=== PATIENT | female | born 1965 | race African-American/Black ===

== ENCOUNTER 2017-01-14 09:58 | Emergency (ER) | payer SELFPAY ==
[~2017-01-14] VITALS: Ht 165.1 cm; Wt 102.1 kg
[2017-01-14] MEDS ORDERED: HYDROcodone/APAP 5/325MG 1 TAB TABLET PO ONE (10:15)
--- NOTE | 2017-01-14 11:04 | RAD ---
Examination: 3 views of the right knee History: History of pain, swelling Comparison: None available Findings: The alignment of the knee joint grossly appears unremarkable. Small knee joint effusion is visualized. No obvious acute fracture is not identified. Impression: No obvious acute fracture visualized. Small knee joint effusion, nonspecific.
--- NOTE | 2017-01-14 11:10 | PHYS DOC ---
Past Medical History Past Medical History: Hypertension Past Surgical History: No Surgical History, Tonsillectomy Additional Past Surgical Histo: L KNEE Alcohol Use: Occasionally Drug Use: None Adult General Chief Complaint Chief Complaint: KNEE INJURY HPI HPI Patient is a 52 year old female presents the ED complaining of right knee injury times one week ago. Patient states she was walking and hit her knee on the end of a table. Describes pain as sharp. Rates the pain as 7 out of 10. Patient is able to ambulate without assistance. Denies head/neck injury, LOC, laceration, rash, chest pain or shortness of breath. Review of Systems Review of Systems Constitutional: Denies fever or chills [] Eyes: Denies change in visual acuity, redness, or eye pain [] HENT: Denies nasal congestion or sore throat [] Respiratory: Denies cough or shortness of breath [] Cardiovascular: No additional information not addressed in HPI [] GI: Denies abdominal pain, nausea, vomiting, bloody stools or diarrhea [] : Denies dysuria or hematuria [] Musculoskeletal: Complains of right knee pain. Denies back pain. [] Integument: Denies rash or skin lesions [] Neurologic: Denies headache, focal weakness or sensory changes [] Endocrine: Denies polyuria or polydipsia [] All other systems were reviewed and found to be within normal limits, except as documented in this note. Current Medications Current Medications Current Medications Medications (Trade) Dose Ordered Sig/Brooks Start Time Stop Time Status Last Admin Dose Admin Acetaminophen/ Hydrocodone Bitart (Lortab 5/325) 1 tab 1X ONCE 01/14/17 10:15 01/14/17 10:16 DC 01/14/17 10:24 1 TAB Lisinopril (Prinivil) 10 mg 1X ONCE 01/14/17 11:30 01/14/17 11:31 DC 01/14/17 11:52 10 MG Allergies Allergies Allergies Coded Allergies Type Severity Reaction Last Updated Verified No Known Drug Allergies 08/12/13 No Physical Exam Physical Exam Constitutional: Well developed, well nourished, no acute distress, non-toxic appearance. [] HENT: Normocephalic, atraumatic, bilateral external ears normal, oropharynx moist, no oral exudates, nose normal. [] Eyes: PERRLA, EOMI, conjunctiva normal, no discharge. [] Neck: Normal range of motion, no tenderness, supple, no stridor. [] Cardiovascular:Heart rate regular rhythm, no murmur [] Lungs & Thorax: Bilateral breath sounds clear to auscultation [] Abdomen: Bowel sounds normal, soft, no tenderness, no masses, no pulsatile masses. [] Skin: Warm, dry, no erythema, no rash. [] Back: No tenderness, no CVA tenderness. [] Extremities: MILD RIGHT ANTERIOR KNEE TENDERNESS., no cyanosis, no clubbing, ROM intact, no edema. [] Neurologic: Alert and oriented X 3, normal motor function, normal sensory function, no focal deficits noted. [] Psychologic: Affect normal, judgement normal, mood normal. [] Current Patient Data Vital Signs Vital Signs Date Time Temp Pulse Resp B/P (MAP) Pulse Ox O2 Delivery O2 Flow Rate FiO2 01/14/17 11:52 168/76 01/14/17 10:24 18 96 Room Air 01/14/17 10:00 98.0 90 98.0 Lab Values Laboratory Tests Test 01/14/17 11:09 POC Hemoglobin 13.3 g/dL (12-15) POC Hematocrit 39 % (36-40) POC Sodium 139 mmol/L (135-145) POC Potassium 3.5 mmol/L (3.5-5.0) POC Chloride 106 mmol/L (98-110) POC Total CO2 23 mmol/L (23-32) Anion Gap 14 mmol/L (6-14) POC Blood Urea Nitrogen 9 mg/dL (8-26) POC Creatinine 0.8 mg/dL (0.5-1.4) Glucose Level 199 mg/dL (70-99) H POC Ionized Calcium ([place]) 1.09 mmol/L (1.13-1.32) L Laboratory Tests 01/14/17 11:09 EKG EKG [] Radiology/Procedures Radiology/Procedures PROCEDURE: KNEE RIGHT 3V Examination: 3 views of the right knee History: History of pain, swelling Comparison: None available Findings: The alignment of the knee joint grossly appears unremarkable. Small knee joint effusion is visualized. No obvious acute fracture is not identified. Impression: No obvious acute fracture visualized. Small knee joint effusion, nonspecific.[] Course & Med Decision Making Course & Med Decision Making Pertinent Labs and Imaging studies reviewed. (See chart for details) Patient's blood pressure elevated on arrival. States she has not been taking her blood pressure medication over the last week. Patient states that she takes lisinopril 10 mg daily. Patient denies chest pain, shortness of breath, dizziness, weakness, nausea/vomiting, headache, vision changes or symptoms related to high blood pressure. Discussed consequences if patient does not take her blood pressure medication including . Discussed the importance of follow-up with her PCP this week for repeat serial blood pressure monitoring. Patient understands and agrees with plan. Patients blood pressure improved in ED without intervention. Discussed imaging findings with patient. Patient's pain improved. Vital stable, no acute distress. Patient able to ambulate without assistance. AIDAN bandage placed. NV intact post placement. Discussed follow-up and reasons to return to the ED. Dragon Disclaimer Dragon Disclaimer This electronic medical record was generated, in whole or in part, using a voice recognition dictation system. Departure Departure Impression: Primary Impression: Knee injury Additional Impressions: Hypertension Knee joint effusion Disposition: HOME, SELF-CARE Condition: IMPROVED Referrals: NO PCP (PCP) JANINA TAYLOR MD, JOHN N MD Patient Instructions: Hypertension, Knee - Cartilage (Meniscus) Injury, Knee Pain Scripts Lisinopril (LISINOPRIL) 10 Mg Tablet 1 TAB PO DAILY, #14 TAB 2 Refills Prov: MATI MURO 01/14/17 Tramadol Hcl (TRAMADOL HCL) 50 Mg Tablet 1 TAB PO PRN Q6HRS, #12 TAB Prov: MATI MURO 01/14/17 Problem Qualifiers MATI MURO Jan 14, 2017 11:10
[2017-01-14 11:14] LABS: POTASSIUM ISTAT 3.5 mmol/L (3.5-5.0)
[2017-01-14] MEDS ORDERED: TRAM50TA PO (11:20)
[2017-01-14] MEDS ORDERED: LISI10TA2 PO (11:20)
[2017-01-14] MEDS ORDERED: LISINOPRIL 10 MG TABLET PO ONE (11:30)
[2017-01-14 11:52] VITALS: BP 168/76
== END 2017-01-14 11:46 | disposition home or self-care (01) ==
LOC: ER 09:58
DX: S89.91XA Unspecified injury of right lower leg, initial encounter (principal); M25.461 Effusion, right knee; I10 Essential (primary) hypertension; W22.8XXA Striking against or struck by other objects, initial encounter; Y93.01 Activity, walking, marching and hiking; Y99.8 Other external cause status; Y92.89 Other specified places as the place of occurrence of the external cause
CPT/HCPCS: 36415; 73562; 80047; 85014; 85018; 99284

== ENCOUNTER 2017-05-26 05:30 | Emergency (ER) | payer SELFPAY ==
[2017-05-26 06:31] LABS: ADD MAN DIFF? NO
[2017-05-26 06:35] LABS: BASO # 0.1 x10^3/uL (0.0-0.2); BASO % 1 % (0-3); EOS # 0.2 x10^3/uL (0.0-0.7); EOS % 2 % (0-3); HEMATOCRIT 38.2 % (36.0-47.0); HEMOGLOBIN 12.6 g/dL (12.0-15.5); LYMPH # 1.9 x10^3/uL (1.0-4.8); LYMPH % 13 % (24-48); MEAN CORPUSCULAR HEMOGLOBIN 31 pg (25-35); MEAN CORPUSCULAR HGB CONC 33 g/dL (31-37); MEAN CORPUSCULAR VOLUME 93 fL (79-100); MONO # 0.6 x10^3/uL (0.0-1.1); MONO % 4 % (0-9); NEUT # 11.3 x10^3uL (1.8-7.7); NEUT % 80 % (31-73); PLATELET COUNT 312 x10^3/uL (140-400); RED BLOOD COUNT 4.09 x10^6/uL (3.50-5.40); RED CELL DISTRIBUTION WIDTH 15.7 % (11.5-14.5); WHITE BLOOD COUNT 14.1 x10^3/uL (4.0-11.0)
[2017-05-26] MEDS: ALBUTEROL SULFATE 2.5 MG/3 ML NEBU. NEB ×2 (06:40→08:45)
[2017-05-26 06:42] LABS: ANION GAP 12 (6-14); BLOOD UREA NITROGEN 7 mg/dL (7-20); BUN/CREATININE RATIO 8 (6-20); CALCIUM 8.9 mg/dL (8.5-10.1); CARBON DIOXIDE 28 mmol/L (21-32); CHLORIDE 101 mmol/L (98-107); CREATININE 0.9 mg/dL (0.6-1.0); GFR 79.9; GLUCOSE 171 mg/dL (70-99); POTASSIUM 3.4 mmol/L (3.5-5.1); SODIUM 141 mmol/L (136-145)
[2017-05-26 06:48] LABS: ALBUMIN 3.1 g/dL (3.4-5.0); ALBUMIN/GLOBULIN RATIO 0.8 (1.0-1.7); ALK PHOS 89 U/L (46-116); ALT (SGPT) 14 U/L (14-59); AST (SGOT) 8 U/L (15-37); TOTAL BILIRUBIN 0.4 mg/dL (0.2-1.0); TOTAL PROTEIN 6.9 g/dL (6.4-8.2)
[2017-05-26] MEDS: IPRATROPIUM BROMIDE 0.5 MG/2.5 ML NEBU. NEB (06:52)
[2017-05-26 06:56] LABS: NT-PRO BNP 209 pg/mL (0-124)
[2017-05-26 07:46] LABS: INFLUENZA A PATIENT NEGATIVE (NEGATIVE); INFLUENZA B PATIENT NEGATIVE (NEGATIVE); OBC FLU VALID
== END 2017-05-26 09:26 | disposition home or self-care (01) ==
LOC: ER 05:30
DX: J20.8 Acute bronchitis due to other specified organisms (principal); B96.89 Other specified bacterial agents as the cause of diseases classified elsewhere; I10 Essential (primary) hypertension
CPT/HCPCS: 36415; 71045; 80053; 83880; 85025; 87804; 87804-59; 94640; 99285-25; J7613; J7644

== ENCOUNTER 2018-08-30 12:40 | Inpatient (IN) | payer SELFPAY ==
[~2018-08-30] VITALS: Ht 165.1 cm; Wt 111.8 kg
[~2018-08-30 12:40] MED LIST: ALBU2.5V8 INH; LEVO500T59 PO; LISI10TA2 PO; TRAM50TA PO
[2018-08-30] MEDS ORDERED: IV NORMAL SALINE 1000ML BAG 1,000 ML IV ONE ×2 (13:30→15:15)
--- NOTE | 2018-08-30 13:35 | EKG ---
[facility] [address] [place] [address] Test Date: 2018-08-30 Test Time: 13:12:25 Pat Name: ANALIA SIDNEY Department: Room: Gender: F [employer]: [employer] : 1965 Requested By: ANALIA JEFFERSON Order Number: [id number] Reading MD: Measurements Intervals [place] Rate: 101 P: 59 IN: 144 QRS: 45 QRSD: 82 T: 34 QT: 342 QTc: 450 Interpretive Statements SINUS TACHYCARDIA LEFT ATRIAL ABNORMALITY QRS(T) CONTOUR ABNORMALITY CANNOT RULE OUT ANTEROSEPTAL MYOCARDIAL DAMAGE ABNORMAL ECG No previous ECG available for comparison
[2018-08-30 13:42] LABS: BILIRUBIN,URINE NEGATIVE (NEG); CLARITY,URINE CLEAR; COLOR,URINE YELLOW; NITRITE,URINE NEGATIVE (NEG); PH,URINE 5.5; PROTEIN,URINE NEGATIVE (NEG-TRACE); UROBILINOGEN,URINE 0.2 mg/dL (0.2 mg/dL)
--- NOTE | 2018-08-30 13:46 | PHYS DOC ---
Past Medical History Past Medical History: Diabetes-Type II, GERD, Hypertension Past Surgical History: No Surgical History, Other Additional Past Surgical Histo: L KNEE Additional Information: 0.3 PPD Alcohol Use: Rarely Additional Information: SOBER 19 DAYS Drug Use: None Adult General Chief Complaint Chief Complaint: HYPERGLYCEMIA HPI HPI 31-year-old female presents to ER via POV for complaints of elevated blood glucose for the past few weeks. Patient states she had been on metformin a couple of years ago but stopped taking it along with her hypertension medicine. Patient states both of her parents have history of diabetes. Patient states she has had intermittent nausea and decreased appetite. She states she's had increased thirst and urinary frequency. Patient states she's had generalized fatigue denies any dizziness, chest pain, or palpitations. She reports she has had a intermittent prod. cough with history of daily smoker. Patient denies fever, abdominal pain, or swelling in extremities. Review of Systems Review of Systems Constitutional: Denies fever or chills. Reports generalized fatigue and weakness Eyes: Denies change in visual acuity, redness, or eye pain [] HENT: Denies nasal congestion or sore throat [] Respiratory: Denies shortness of breath. Reports intermittent prod. cough Cardiovascular: Denies CP/palpitations GI: Denies abdominal pain, vomiting, bloody stools or diarrhea. Reports intermittent nausea and decreased appetite : Denies dysuria or hematuria. Reports urinary frequency Musculoskeletal: Denies back/neck pain or joint pain [] Integument: Denies rash, swelling or skin lesions [] Neurologic: Denies headache, focal weakness or sensory changes [] Endocrine: Reports polyuria or polydipsia [] All other systems were reviewed and found to be within normal limits, except as documented in this note. Current Medications Current Medications Current Medications Medications (Trade) Dose Ordered Sig/Brooks Start Time Stop Time Status Last Admin Dose Admin Insulin Human Regular (HumuLIN R VIAL) 10 unit 1X ONCE 08/30/18 15:15 08/30/18 15:16 DC 08/30/18 15:20 10 UNIT Sodium Chloride 1,000 ml @ 1,000 mls/hr 1X ONCE 08/30/18 15:15 08/30/18 16:14 DC 08/30/18 15:19 1,000 MLS/HR Allergies Allergies Allergies Coded Allergies Type Severity Reaction Last Updated Verified No Known Drug Allergies 08/12/13 No Physical Exam Physical Exam Constitutional: Well developed, well nourished, no acute distress, non-toxic appearance. [] HENT: Normocephalic, atraumatic, mucous membranes pink/dry, nose normal. [] Eyes: PERRLA, no nystagmus, conjunctiva normal, no discharge. [] Neck: Normal range of motion, no tenderness, supple, no stridor. [] Cardiovascular: Heart rate regular rhythm, no murmur [] Lungs & Thorax: Bilateral breath sounds clear to auscultation- resp. equal/nonlabored Abdomen: Bowel sounds normal, soft-no distention or rigidity, no tenderness, no masses, no pulsatile masses. [] Skin: Warm, dry, no erythema, no rash. [] Back: No tenderness, no CVA tenderness. [] Extremities: No tenderness, no cyanosis, no clubbing, ROM intact, no edema. [] Neurologic: Alert and oriented X 3, normal motor function, normal sensory function, no focal deficits noted. [] Psychologic: Affect normal, judgement normal, mood normal. [] Current Patient Data Vital Signs Vital Signs Date Time Temp Pulse Resp B/P (MAP) Pulse Ox O2 Delivery O2 Flow Rate FiO2 08/30/18 14:05 90 16 130/61 (84) 95 Room Air 08/30/18 13:02 99.2 99.2 Lab Values Laboratory Tests Test 08/30/18 13:05 08/30/18 13:35 08/30/18 14:15 Urine Collection Type Unknown Urine Color Yellow Urine Clarity Clear Urine pH 5.5 Urine Specific [place] >=1.030 Urine Protein Negative mg/dL (NEG-TRACE) Urine Glucose (UA) >=1000 mg/dL (NEG) Urine Ketones (Stick) Negative mg/dL (NEG) Urine Blood Negative (NEG) Urine Nitrite Negative (NEG) Urine Bilirubin Negative (NEG) Urine Urobilinogen Dipstick 0.2 mg/dL (0.2 mg/dL) Urine Leukocyte Esterase Negative (NEG) Urine RBC 1-2 /HPF (0-2) Urine WBC 1-4 /HPF (0-4) Urine Squamous Epithelial Cells Few /LPF Urine Bacteria 0 /HPF (0-FEW) Urine Trichomonas Present Urine Yeast Present /HPF Urine Opiates Screen Neg (NEG) Urine Methadone Screen Neg (NEG) Urine Barbiturates Neg (NEG) Urine Phencyclidine Screen Neg (NEG) Urine Amphetamine/Methamphetamine Neg (NEG) Urine Benzodiazepines Screen Neg (NEG) Urine Cocaine Screen Pos (NEG) Urine Cannabinoids Screen Neg (NEG) Urine Ethyl Alcohol Neg (NEG) POC Urine HCG, Qualitative Hcg negative (Negative) White Blood Count 12.1 x10^3/uL (4.0-11.0) H Red Blood Count 4.54 x10^6/uL (3.50-5.40) Hemoglobin 14.2 g/dL (12.0-15.5) Hematocrit 43.4 % (36.0-47.0) Mean Corpuscular Volume 96 fL (79-100) Mean Corpuscular Hemoglobin 31 pg (25-35) Mean Corpuscular Hemoglobin Concent 33 g/dL (31-37) Red Cell Distribution Width 14.6 % (11.5-14.5) H Platelet Count 284 x10^3/uL (140-400) Neutrophils (%) (Auto) 79 % (31-73) H Lymphocytes (%) (Auto) 15 % (24-48) L Monocytes (%) (Auto) 4 % (0-9) Eosinophils (%) (Auto) 1 % (0-3) Basophils (%) (Auto) 1 % (0-3) Neutrophils # (Auto) 9.6 x10^3/uL (1.8-7.7) H Lymphocytes # (Auto) 1.8 x10^3/uL (1.0-4.8) Monocytes # (Auto) 0.5 x10^3/uL (0.0-1.1) Eosinophils # (Auto) 0.1 x10^3/uL (0.0-0.7) Basophils # (Auto) 0.1 x10^3/uL (0.0-0.2) Sodium Level 124 mmol/L (136-145) L Potassium Level 4.2 mmol/L (3.5-5.1) Chloride Level 87 mmol/L (98-107) L Carbon Dioxide Level 23 mmol/L (21-32) Anion Gap 14 (6-14) Blood Urea Nitrogen 9 mg/dL (7-20) Creatinine 1.4 mg/dL (0.6-1.0) H Estimated GFR (Cockcroft-Gault) 47.8 BUN/Creatinine Ratio 6 (6-20) Glucose Level 850 mg/dL (70-99) *H Calcium Level 9.5 mg/dL (8.5-10.1) Magnesium Level 2.1 mg/dL (1.8-2.4) Total Bilirubin 0.3 mg/dL (0.2-1.0) Aspartate Amino Transferase (AST) 7 U/L (15-37) L Alanine Aminotransferase (ALT) 17 U/L (14-59) Alkaline Phosphatase 170 U/L (46-116) H Troponin I Quantitative < 0.017 ng/mL (0.000-0.055) Total Protein 8.2 g/dL (6.4-8.2) Albumin 3.5 g/dL (3.4-5.0) Albumin/Globulin Ratio 0.7 (1.0-1.7) L Ethyl Alcohol Level < 10 mg/dL (0-10) Acetone Level Neg (NEG) Laboratory Tests 08/30/18 14:15 Laboratory Tests 08/30/18 14:15 EKG EKG EKG obtained 08/30/18 at [address] Cid Sinus rhythm Rate 102 No STEMI Radiology/Procedures Radiology/Procedures PROCEDURE: CHEST PA & LATERAL Indication: Peak TECHNIQUE: 2 views of the chest COMPARISON: 05/26/2017 FINDINGS: Heart is normal in size. Streaky bilateral central opacities are seen. No focal consolidation. No pneumothorax or pleural effusion. Visualized bony thorax within normal limits. IMPRESSION: Findings suggests mild bronchitis. Electronically signed by: Henry Mendoza DO (08/30/2018 2:01 PM) [facility] DICTATED and SIGNED BY: HENRY MENDOZA DO DATE: 08/30/18 1401 Course & Med Decision Making Course & Med Decision Making Pertinent Labs and Imaging studies reviewed. (See chart for details) 1340: RN reported initial bedside glucose read HIGH. Dr. Escobedo, hospitalist in ER so discussed pt's case and admission plan with pt's presenting sxs and pt having no PCP to f/u with- she is agreeable with admit plan. Pt's blood glucose on lab results at 850 anion gap NL at 14 and acetone level negative. Patient had no ketones on her UA. CO2 was normal limits. Patient's chest x-ray showed mild bronchitis. Patient's UA negative for infection but was positive for Trichomonas and yeast. Patient has been given 2 L normal saline and IV regular insulin 10 units. Patient is being admitted to [facility] for further care and monitoring. Patient will be started on doxycycline for bronchitis and Flagyl for trichomonas. Patient's sodium on labs 124 corrected sodium level was 142. Test results discussed with patient. She remains nontoxic in appearance and in no distress during discussion on tests. 1615: On recheck patient's blood sugar is 433 after 1 L of fluid and 10 units regular IV. Patient has second liter normal saline infusing blood sugar will be monitored during admission. Test results were discussed with patient along with plan of care. Pt being admitted with SS insulin as she is not in DKA. She had EKG obtained while in the ER with no acute ST elevation/STEMI and troponin was neg. Dragon Disclaimer Dragon Disclaimer This electronic medical record was generated, in whole or in part, using a voice recognition dictation system. Departure Departure Impression: Primary Impression: Hyperglycemia Additional Impression: Bronchitis Disposition: ADMITTED INPATIENT Admitting Physician: KELSI Condition: STABLE Referrals: NO PCP (PCP) Scripts Insulin Glargine,Hum.rec.anlog (LANTUS SOLOSTAR) 100 Unit/1 Ml Insuln.pen 20 UNITS SQ QHS for diabetes for 30 Days, EACH Prov: CLIFF RUEDA MD 08/31/18 Doxycycline Hyclate (DOXYCYCLINE HYCLATE) 100 Mg Capsule 1 CAP PO BID for bronchitis, #14 CAP Prov: CLIFF RUEDA MD 08/31/18 Metformin Hcl (GLUCOPHAGE) 850 Mg Tablet 850 MG PO BIDWMEALS for diabetes, #60 TAB 1 Refill Prov: CLIFF RUEDA MD 08/31/18 Glyburide (GLYBURIDE) 5 Mg Tablet 5 MG PO BIDWMEALS for diabetes, #60 TAB 1 Refill Prov: CLIFF RUEDA MD 08/31/18 Problem Qualifiers ANALIA JEFFERSON APRN Aug 30, 2018 13:46
--- NOTE | 2018-08-30 14:04 | RAD ---
Indication: Peak TECHNIQUE: 2 views of the chest COMPARISON: 05/26/2017 FINDINGS: Heart is normal in size. Streaky bilateral central opacities are seen. No focal consolidation. No pneumothorax or pleural effusion. Visualized bony thorax within normal limits. IMPRESSION: Findings suggests mild bronchitis. Electronically signed by: Henry Mendoza DO (08/30/2018 2:01 PM) [facility]
[2018-08-30 14:13] LABS: BACTERIA,URINE 0 /HPF (0-FEW); SQUAMOUS EPITHELIAL CELL,UR FEW /LPF; TRICHOMONAS,URINE PRESENT; YEAST,URINE PRESENT /HPF
[2018-08-30 14:28] LABS: BASO # 0.1 x10^3/uL (0.0-0.2); BASO % 1 % (0-3); EOS # 0.1 x10^3/uL (0.0-0.7); EOS % 1 % (0-3); HEMATOCRIT 43.4 % (36.0-47.0); HEMOGLOBIN 14.2 g/dL (12.0-15.5); LYMPH # 1.8 x10^3/uL (1.0-4.8); LYMPH % 15 % (24-48); MEAN CORPUSCULAR HEMOGLOBIN 31 pg (25-35); MEAN CORPUSCULAR HGB CONC 33 g/dL (31-37); MEAN CORPUSCULAR VOLUME 96 fL (79-100); MONO # 0.5 x10^3/uL (0.0-1.1); MONO % 4 % (0-9); NEUT # 9.6 x10^3/uL (1.8-7.7); NEUT % 79 % (31-73); PLATELET COUNT 284 x10^3/uL (140-400); RED BLOOD COUNT 4.54 x10^6/uL (3.50-5.40); RED CELL DISTRIBUTION WIDTH 14.6 % (11.5-14.5); WHITE BLOOD COUNT 12.1 x10^3/uL (4.0-11.0)
[2018-08-30 14:40] LABS: CALCIUM 9.5 mg/dL (8.5-10.1); CREATININE 1.4 mg/dL (0.6-1.0); GFR 47.8; POTASSIUM 4.2 mmol/L (3.5-5.1)
[2018-08-30 14:43] LABS: ALBUMIN 3.5 g/dL (3.4-5.0); ALBUMIN/GLOBULIN RATIO 0.7 (1.0-1.7); MAGNESIUM 2.1 mg/dL (1.8-2.4); TOTAL BILIRUBIN 0.3 mg/dL (0.2-1.0); TOTAL PROTEIN 8.2 g/dL (6.4-8.2)
[2018-08-30 15:08] LABS: BARBITURATES NEG (NEG); BENZODIAZEPINES NEG (NEG); CANNABINOIDS NEG (NEG); COCAINE POS (NEG); METHADONE NEG (NEG); OPIATES NEG (NEG); PHENCYCLIDINE NEG (NEG)
[2018-08-30 15:10] LABS: AMPHETAMINE/METHAMPHETAMINE NEG (NEG)
[2018-08-30] MEDS ORDERED: INSULIN REGULAR 100 UNIT/ML 3ML VIAL. IV ONE ×3 (15:15→19:30)
[2018-08-30] MEDS ORDERED: metroNIDAZOLE 500 MG TABLET PO ONE (16:30)
[2018-08-30] MEDS ORDERED: DOXYCYCLINE HYCLATE 100 MG TABLET PO ONE (16:30)
[2018-08-30] MEDS ORDERED: INSULIN LISPRO 300 UNITS/3 ML INSULN.PEN. SQ ONE ×3 (16:45→19:00)
[2018-08-30 17:05] VITALS: BP_SYST 121; BP_SYST 129; BP_DIAS 61; BP_DIAS 94
[2018-08-30] MEDS ORDERED: DEXTROSE 50% 25 GM / 50ML DISP.SYRIN. IV PRN ×2 (17:30→18:00)
[2018-08-30] MEDS ORDERED: ONDANSETRON PF 4 MG/2 ML VIAL. IV PRN (17:30)
--- NOTE | 2018-08-30 17:38 | PDOC1 ---
History and Physical Date of Admission Date of Admission DATE: 08/30/18 TIME: 17:37 Identification/Chief Complaint Chief Complaint SEEN IN ER, presented to ER via POV for complaints of elevated blood glucose for the past few weeks. Patient states she had been on metformin a couple of years ago but stopped taking it along with her hypertension medicine. Patient states both of her parents have history of diabetes. Patient states she has had intermittent nausea and decreased appetite. states she's had increased thirst and urinary frequency GLUCOSE > 800 IN ER . Patient states she's had generalized fatigue denies any dizziness, chest pain, or palpitations. She reports she has had a intermittent prod. cough with history of daily smoker. Patient denies fever, abdominal pain, or swelling in extremities.UDS POS COCAINE Past Medical History Past Medical History Past Medical History: Diabetes-Type II, GERD, Hypertension Past Surgical History: No Surgical History, Other Additional Past Surgical Histo: L KNEE Additional Information: 0.3 PPD Alcohol Use: Rarely Additional Information: SOBER 19 DAYS Drug Use: None family hx Psych: Addictions Family History Family History: Alcohol Abuse, High Cholestrol Social History Smoke: <1 pack per day ALCOHOL: occassional Drugs: Cocaine Current Problem List Problem List Problems Medical Problems: (1) Bronchitis Status: Acute (2) Hyperglycemia Status: Acute Current Medications Current Medications Current Medications Sodium Chloride 1,000 ml @ 1,000 mls/hr 1X ONCE IV Last administered on 08/30/18at 14:01; Start 08/30/18 at 13:30; Stop 08/30/18 at 14:29; Status DC Sodium Chloride 1,000 ml @ 1,000 mls/hr 1X ONCE IV Last administered on 08/30/18at 15:19; Start 08/30/18 at 15:15; Stop 08/30/18 at 16:14; Status DC Insulin Human Regular (HumuLIN R VIAL) 10 unit 1X ONCE IV Last administered on 08/30/18at 15:20; Start 08/30/18 at 15:15; Stop 08/30/18 at 15:16; Status DC Doxycycline Hyclate (Vibra-Tab) 100 mg 1X ONCE PO Last administered on 08/30/18at 17:01; Start 08/30/18 at 16:30; Stop 08/30/18 at 16:34; Status DC Metronidazole (Flagyl) 500 mg 1X ONCE PO Last administered on 08/30/18at 17:01; Start 08/30/18 at 16:30; Stop 08/30/18 at 16:34; Status DC Insulin Human Lispro (HumaLOG) 8 units 1X ONCE SQ Last administered on 08/30/18at 17:00; Start 08/30/18 at 16:45; Stop 08/30/18 at 16:46; Status DC Ondansetron HCl (Zofran) 4 mg PRN Q8HRS PRN IV NAUSEA/VOMITING; Start 08/30/18 at 17:30; Stop 08/31/18 at 17:29; Status UNV Insulin Human Lispro (HumaLOG) 0-5 UNITS TIDWMEALS SQ ; Start 08/31/18 at 08:00; Status UNV Dextrose (Dextrose 50%-Water Syringe) 12.5 gm PRN Q15MIN PRN IV SEE COMMENTS; Start 08/30/18 at 17:30; Status UNV Active Scripts Active Levaquin (Levofloxacin) 500 Mg Tablet 1 Tab PO DAILY 7 Days Proair Hfa Inhaler (Albuterol Sulfate) 8.5 Gm Hfa.aer.ad 2 Puff INH PRN Q6HRS PRN Lisinopril 10 Mg Tablet 1 Tab PO DAILY Tramadol Hcl 50 Mg Tablet 1 Tab PO PRN Q6HRS Allergies Allergies: Coded Allergies: No Known Drug Allergies (Unverified , 08/12/13) ROS Review of System Review of Systems Review of Systems Constitutional: Denies fever or chills. Reports generalized fatigue and weakness Eyes: Denies change in visual acuity, redness, or eye pain [] HENT: Denies nasal congestion or sore throat [] Respiratory: Denies shortness of breath. Reports intermittent prod. cough Cardiovascular: Denies CP/palpitations GI: Denies abdominal pain, vomiting, bloody stools or diarrhea. Reports intermittent nausea and decreased appetite : Denies dysuria or hematuria. Reports urinary frequency Musculoskeletal: Denies back/neck pain or joint pain [] Integument: Denies rash, swelling or skin lesions [] Neurologic: Denies headache, focal weakness or sensory changes [] Endocrine: Reports polyuria or polydipsia [] 14 PT systems were reviewed and found to be within normal limits, except as documented . Physical Exam Physical Exam Physical Exam Physical Exam Constitutional: Well developed, well nourished, no acute distress, non-toxic appearance. [] HENT: Normocephalic, atraumatic, mucous membranes pink/dry, nose normal. [] Eyes: PERRLA, no nystagmus, conjunctiva normal, no discharge. [] Neck: Normal range of motion, no tenderness, supple, no stridor. [] Cardiovascular: Heart rate regular rhythm, no murmur [] Lungs & Thorax: Bilateral breath sounds clear to auscultation- resp. equal/nonlabored Abdomen: Bowel sounds normal, soft-no distention or rigidity, no tenderness, no masses, no pulsatile masses. [] Skin: Warm, dry, no erythema, no rash. [] Back: No tenderness, no CVA tenderness. [] Extremities: No tenderness, no cyanosis, no clubbing, ROM intact, no edema. [] Neurologic: Alert and oriented X 3, normal motor function, normal sensory function, no focal deficits noted. [] Psychologic: Affect normal, judgement POOR mood normal. [] General: Alert, Oriented X3, Cooperative, No acute distress HEENT: Atraumatic Heart: RRR, no thrills Breasts: Not examined Abdomen: Normal bowel sounds, Soft Rectal Exam: not examined PELVIC: Examination not indicated Extremities: No cyanosis Neuro: Normal speech, Cranial nerves 3-12 NL Psych/Mental Status: Mental status NL, Mood NL Vitals Vitals Vital Signs Date Time Temp Pulse Resp B/P (MAP) Pulse Ox O2 Delivery O2 Flow Rate FiO2 08/30/18 17:11 Room Air 08/30/18 17:05 98.1 100 18 121/94 (103) 98 98.1 Labs Labs Laboratory Tests Test 08/30/18 13:04 08/30/18 13:05 08/30/18 13:35 08/30/18 14:15 Bedside Urine HCG, Qualitative Hcg negative (Negative) Hcg negative (Negative) Urine Collection Type Unknown Urine Color Yellow Urine Clarity Clear Urine pH 5.5 Urine Specific [place] >=1.030 Urine Protein Negative mg/dL (NEG-TRACE) Urine Glucose (UA) >=1000 mg/dL (NEG) Urine Ketones (Stick) Negative mg/dL (NEG) Urine Blood Negative (NEG) Urine Nitrite Negative (NEG) Urine Bilirubin Negative (NEG) Urine Urobilinogen Dipstick 0.2 mg/dL (0.2 mg/dL) Urine Leukocyte Esterase Negative (NEG) Urine RBC 1-2 /HPF (0-2) Urine WBC 1-4 /HPF (0-4) Urine Squamous Epithelial Cells Few /LPF Urine Bacteria 0 /HPF (0-FEW) Urine Trichomonas Present Urine Yeast Present /HPF Urine Opiates Screen Neg (NEG) Urine Methadone Screen Neg (NEG) Urine Barbiturates Neg (NEG) Urine Phencyclidine Screen Neg (NEG) Urine Amphetamine/Methamphetamine Neg (NEG) Urine Benzodiazepines Screen Neg (NEG) Urine Cocaine Screen Pos (NEG) Urine Cannabinoids Screen Neg (NEG) Urine Ethyl Alcohol Neg (NEG) White Blood Count 12.1 x10^3/uL (4.0-11.0) Red Blood Count 4.54 x10^6/uL (3.50-5.40) Hemoglobin 14.2 g/dL (12.0-15.5) Hematocrit 43.4 % (36.0-47.0) Mean Corpuscular Volume 96 fL (79-100) Mean Corpuscular Hemoglobin 31 pg (25-35) Mean Corpuscular Hemoglobin Concent 33 g/dL (31-37) Red Cell Distribution Width 14.6 % (11.5-14.5) Platelet Count 284 x10^3/uL (140-400) Neutrophils (%) (Auto) 79 % (31-73) Lymphocytes (%) (Auto) 15 % (24-48) Monocytes (%) (Auto) 4 % (0-9) Eosinophils (%) (Auto) 1 % (0-3) Basophils (%) (Auto) 1 % (0-3) Neutrophils # (Auto) 9.6 x10^3/uL (1.8-7.7) Lymphocytes # (Auto) 1.8 x10^3/uL (1.0-4.8) Monocytes # (Auto) 0.5 x10^3/uL (0.0-1.1) Eosinophils # (Auto) 0.1 x10^3/uL (0.0-0.7) Basophils # (Auto) 0.1 x10^3/uL (0.0-0.2) Sodium Level 124 mmol/L (136-145) Potassium Level 4.2 mmol/L (3.5-5.1) Chloride Level 87 mmol/L (98-107) Carbon Dioxide Level 23 mmol/L (21-32) Anion Gap 14 (6-14) Blood Urea Nitrogen 9 mg/dL (7-20) Creatinine 1.4 mg/dL (0.6-1.0) Estimated GFR (Cockcroft-Gault) 47.8 BUN/Creatinine Ratio 6 (6-20) Glucose Level 850 mg/dL (70-99) Calcium Level 9.5 mg/dL (8.5-10.1) Magnesium Level 2.1 mg/dL (1.8-2.4) Total Bilirubin 0.3 mg/dL (0.2-1.0) Aspartate Amino Transf (AST/SGOT) 7 U/L (15-37) Alanine Aminotransferase (ALT/SGPT) 17 U/L (14-59) Alkaline Phosphatase 170 U/L (46-116) Troponin I Quantitative < 0.017 ng/mL (0.000-0.055) Total Protein 8.2 g/dL (6.4-8.2) Albumin 3.5 g/dL (3.4-5.0) Albumin/Globulin Ratio 0.7 (1.0-1.7) Ethyl Alcohol Level < 10 mg/dL (0-10) Acetone Level Neg (NEG) Test 08/30/18 16:10 08/30/18 16:53 Glucose (Fingerstick) 433 mg/dL (70-99) 441 mg/dL (70-99) Laboratory Tests Test 08/30/18 13:04 08/30/18 13:05 08/30/18 13:35 08/30/18 14:15 Bedside Urine HCG, Qualitative Hcg negative (Negative) Hcg negative (Negative) Urine Collection Type Unknown Urine Color Yellow Urine Clarity Clear Urine pH 5.5 Urine Specific [place] >=1.030 Urine Protein Negative mg/dL (NEG-TRACE) Urine Glucose (UA) >=1000 mg/dL (NEG) Urine Ketones (Stick) Negative mg/dL (NEG) Urine Blood Negative (NEG) Urine Nitrite Negative (NEG) Urine Bilirubin Negative (NEG) Urine Urobilinogen Dipstick 0.2 mg/dL (0.2 mg/dL) Urine Leukocyte Esterase Negative (NEG) Urine RBC 1-2 /HPF (0-2) Urine WBC 1-4 /HPF (0-4) Urine Squamous Epithelial Cells Few /LPF Urine Bacteria 0 /HPF (0-FEW) Urine Trichomonas Present Urine Yeast Present /HPF Urine Opiates Screen Neg (NEG) Urine Methadone Screen Neg (NEG) Urine Barbiturates Neg (NEG) Urine Phencyclidine Screen Neg (NEG) Urine Amphetamine/Methamphetamine Neg (NEG) Urine Benzodiazepines Screen Neg (NEG) Urine Cocaine Screen Pos (NEG) Urine Cannabinoids Screen Neg (NEG) Urine Ethyl Alcohol Neg (NEG) White Blood Count 12.1 x10^3/uL (4.0-11.0) Red Blood Count 4.54 x10^6/uL (3.50-5.40) Hemoglobin 14.2 g/dL (12.0-15.5) Hematocrit 43.4 % (36.0-47.0) Mean Corpuscular Volume 96 fL (79-100) Mean Corpuscular Hemoglobin 31 pg (25-35) Mean Corpuscular Hemoglobin Concent 33 g/dL (31-37) Red Cell Distribution Width 14.6 % (11.5-14.5) Platelet Count 284 x10^3/uL (140-400) Neutrophils (%) (Auto) 79 % (31-73) Lymphocytes (%) (Auto) 15 % (24-48) Monocytes (%) (Auto) 4 % (0-9) Eosinophils (%) (Auto) 1 % (0-3) Basophils (%) (Auto) 1 % (0-3) Neutrophils # (Auto) 9.6 x10^3/uL (1.8-7.7) Lymphocytes # (Auto) 1.8 x10^3/uL (1.0-4.8) Monocytes # (Auto) 0.5 x10^3/uL (0.0-1.1) Eosinophils # (Auto) 0.1 x10^3/uL (0.0-0.7) Basophils # (Auto) 0.1 x10^3/uL (0.0-0.2) Sodium Level 124 mmol/L (136-145) Potassium Level 4.2 mmol/L (3.5-5.1) Chloride Level 87 mmol/L (98-107) Carbon Dioxide Level 23 mmol/L (21-32) Anion Gap 14 (6-14) Blood Urea Nitrogen 9 mg/dL (7-20) Creatinine 1.4 mg/dL (0.6-1.0) Estimated GFR (Cockcroft-Gault) 47.8 BUN/Creatinine Ratio 6 (6-20) Glucose Level 850 mg/dL (70-99) Calcium Level 9.5 mg/dL (8.5-10.1) Magnesium Level 2.1 mg/dL (1.8-2.4) Total Bilirubin 0.3 mg/dL (0.2-1.0) Aspartate Amino Transf (AST/SGOT) 7 U/L (15-37) Alanine Aminotransferase (ALT/SGPT) 17 U/L (14-59) Alkaline Phosphatase 170 U/L (46-116) Troponin I Quantitative < 0.017 ng/mL (0.000-0.055) Total Protein 8.2 g/dL (6.4-8.2) Albumin 3.5 g/dL (3.4-5.0) Albumin/Globulin Ratio 0.7 (1.0-1.7) Ethyl Alcohol Level < 10 mg/dL (0-10) Acetone Level Neg (NEG) Test 08/30/18 16:10 08/30/18 16:53 Glucose (Fingerstick) 433 mg/dL (70-99) 441 mg/dL (70-99) VTE Prophylaxis Ordered VTE Prophylaxis Devices: Yes VTE Pharmacological Prophylaxi: Yes Assessment/Plan Assessment/Plan IMPRESSION UNCONTROLLED DIABETES Hyperglycemia MORBID OBESITY COCAINE ABUSE Bronchitis NONCOMPLIANCE ADMITTED/// INPATIENT SS INSULIN DVT PROPHYLAXIS AVOID COCAINE USE, COUNSELED IV FLUID SUPPORT IV ROCEPHIN 1 GM Q 24 HRS IV DUONEBS QID 68 MIN PT EXAM, CHART REVIEW, > 50% OF TIME SPENT WITH EXAM, CHART REVIEW, PT CARE COORDINATION KARELY HILL MD Aug 30, 2018 17:38
[2018-08-30] MEDS ORDERED: cloNIDine HCL 0.1 MG TABLET PO PRN (18:00)
[2018-08-30] MEDS ORDERED: cefTRIAXone IV Push 1 GM VIAL. IVP SCH (18:00)
[2018-08-30] MEDS ORDERED: IPRATRPIUM/ALBUTEROL 0.5/2.5MG 3 ML NEBU. NEB SCH (18:00)
[2018-08-30] MEDS ORDERED: ACETAMINOPHEN 325 MG TABLET. PO PRN (18:00)
[2018-08-30] MEDS ORDERED: 0.9 % SODIUM CHLORIDE 10 ML DISP.SYRIN. IV PRN (18:00)
[2018-08-30] MEDS ORDERED: MAG HYDROX/ALUMINUM HYD/SIMETH 30 ML ORAL.SUSP PO PRN (18:00)
[2018-08-30] MEDS ORDERED: DOCUSATE SODIUM 100 MG CAPSULE. PO PRN (18:00)
[2018-08-30] MEDS: IV NORMAL SALINE 1000ML BAG 1,000 ML IV SCH (18:21)
[2018-08-30 18:56] VITALS: BP 128/61
[2018-08-30] MEDS ORDERED: INSULIN GLARGINE 300 UNITS/3 ML INSULN.PEN. SQ SCH (21:00)
[2018-08-30] MEDS: ALBUTEROL SULFATE 2.5 MG/3 ML NEBU. NEB PRN (21:44)
[2018-08-30 22:17] VITALS: BP 139/65
[2018-08-30] MEDS: LORazepam 0.5 MG TABLET PO PRN (22:50)
[2018-08-31 03:09] VITALS: BP 108/64
[2018-08-31] MEDS: IV NORMAL SALINE 1000ML BAG 1,000 ML IV SCH ×2 (04:35→12:55)
[2018-08-31] MEDS: LORazepam 0.5 MG TABLET PO PRN (04:37)
[2018-08-31 04:47] LABS: BASO # 0.1 x10^3/uL (0.0-0.2); BASO % 1 % (0-3); EOS # 0.2 x10^3/uL (0.0-0.7); EOS % 2 % (0-3); HEMATOCRIT 38.1 % (36.0-47.0); HEMOGLOBIN 12.6 g/dL (12.0-15.5); LYMPH # 2.4 x10^3/uL (1.0-4.8); LYMPH % 24 % (24-48); MEAN CORPUSCULAR HEMOGLOBIN 31 pg (25-35); MEAN CORPUSCULAR HGB CONC 33 g/dL (31-37); MEAN CORPUSCULAR VOLUME 94 fL (79-100); MONO # 0.5 x10^3/uL (0.0-1.1); MONO % 4 % (0-9); NEUT # 7.2 x10^3/uL (1.8-7.7); NEUT % 70 % (31-73); PLATELET COUNT 240 x10^3/uL (140-400); RED BLOOD COUNT 4.06 x10^6/uL (3.50-5.40); RED CELL DISTRIBUTION WIDTH 14.5 % (11.5-14.5); WHITE BLOOD COUNT 10.3 x10^3/uL (4.0-11.0)
[2018-08-31 05:07] LABS: ALBUMIN 2.4 g/dL (3.4-5.0); ALBUMIN/GLOBULIN RATIO 0.6 (1.0-1.7); CALCIUM 8.1 mg/dL (8.5-10.1); GFR 70.5; POTASSIUM 3.9 mmol/L (3.5-5.1); TOTAL BILIRUBIN 0.1 mg/dL (0.2-1.0); TOTAL PROTEIN 6.1 g/dL (6.4-8.2)
[2018-08-31 07:39] VITALS: BP 122/58
[2018-08-31] MEDS: INSULIN LISPRO 300 UNITS/3 ML INSULN.PEN. SQ SCH ×2 (08:00→12:00)
[2018-08-31] MEDS ORDERED: INSULIN LISPRO 300 UNITS/3 ML INSULN.PEN. SQ ONE ×3 (08:00→13:30)
[2018-08-31] MEDS ORDERED: INSULIN LISPRO 300 UNITS/3 ML INSULN.PEN. SQ SCH ×3 (08:00→17:00)
[2018-08-31] MEDS ORDERED: NICOTINE 14MG PATCH. TD PRN (09:00)
[2018-08-31] MEDS ORDERED: ENOXAPARIN 40 MG/0.4 ML SYRINGE. SQ SCH (09:00)
[2018-08-31 10:46] VITALS: BP 132/96
[2018-08-31] MEDS: ALBUTEROL SULFATE 2.5 MG/3 ML NEBU. NEB PRN (11:08)
[2018-08-31] MEDS ORDERED: metFORMIN 850 MG TABLET PO SCH (12:30)
[2018-08-31] MEDS ORDERED: DEXTROSE 50% 25 GM / 50ML DISP.SYRIN. IV PRN (13:15)
[2018-08-31] MEDS ORDERED: metroNIDAZOLE 500 MG TABLET PO ONE (13:30)
[2018-08-31] MEDS ORDERED: DOXY100C2 PO (13:33)
[2018-08-31] MEDS ORDERED: GLYB5TAB3 PO (13:33)
[2018-08-31] MEDS ORDERED: METF850T PO (13:33)
[2018-08-31] MEDS ORDERED: INSU100I13 SQ (13:35)
--- NOTE | 2018-08-31 13:43 | PDOC3 ---
Discharge Summary Visit Information Date of Admission: Aug 30, 2018 Date of Discharge: Aug 31, 2018 Final Diagnosis Dm2, uncontrolled hyperosmolar not ketotic sttate obesity, BMI 41 cocaine abuse tobacco use disorder acute bronchitis trichomonas infection noncompliance with meds, Problems Medical Problems: (1) Bronchitis Status: Acute (2) Hyperglycemia Status: Acute Brief Hospital Course Allergies Allergies Coded Allergies Type Severity Reaction Last Updated Verified No Known Drug Allergies 08/12/13 No Vital Signs Vital Signs Date Time Temp Pulse Resp B/P (MAP) Pulse Ox O2 Delivery O2 Flow Rate FiO2 08/31/18 11:08 96 Room Air 08/31/18 10:46 97.6 73 18 132/96 (108) 97.6 Lab Results Laboratory Tests Test 08/30/18 13:04 08/30/18 13:05 08/30/18 13:35 08/30/18 14:15 Bedside Urine HCG, Qualitative Hcg negative (Negative) Hcg negative (Negative) Urine Collection Type Unknown Urine Color Yellow Urine Clarity Clear Urine pH 5.5 Urine Specific [place] >=1.030 Urine Protein Negative mg/dL (NEG-TRACE) Urine Glucose (UA) >=1000 mg/dL (NEG) Urine Ketones (Stick) Negative mg/dL (NEG) Urine Blood Negative (NEG) Urine Nitrite Negative (NEG) Urine Bilirubin Negative (NEG) Urine Urobilinogen Dipstick 0.2 mg/dL (0.2 mg/dL) Urine Leukocyte Esterase Negative (NEG) Urine RBC 1-2 /HPF (0-2) Urine WBC 1-4 /HPF (0-4) Urine Squamous Epithelial Cells Few /LPF Urine Bacteria 0 /HPF (0-FEW) Urine Trichomonas Present Urine Yeast Present /HPF Urine Opiates Screen Neg (NEG) Urine Methadone Screen Neg (NEG) Urine Barbiturates Neg (NEG) Urine Phencyclidine Screen Neg (NEG) Urine Amphetamine/Methamphetamine Neg (NEG) Urine Benzodiazepines Screen Neg (NEG) Urine Cocaine Screen Pos (NEG) Urine Cannabinoids Screen Neg (NEG) Urine Ethyl Alcohol Neg (NEG) White Blood Count 12.1 x10^3/uL (4.0-11.0) Red Blood Count 4.54 x10^6/uL (3.50-5.40) Hemoglobin 14.2 g/dL (12.0-15.5) Hematocrit 43.4 % (36.0-47.0) Mean Corpuscular Volume 96 fL (79-100) Mean Corpuscular Hemoglobin 31 pg (25-35) Mean Corpuscular Hemoglobin Concent 33 g/dL (31-37) Red Cell Distribution Width 14.6 % (11.5-14.5) Platelet Count 284 x10^3/uL (140-400) Neutrophils (%) (Auto) 79 % (31-73) Lymphocytes (%) (Auto) 15 % (24-48) Monocytes (%) (Auto) 4 % (0-9) Eosinophils (%) (Auto) 1 % (0-3) Basophils (%) (Auto) 1 % (0-3) Neutrophils # (Auto) 9.6 x10^3/uL (1.8-7.7) Lymphocytes # (Auto) 1.8 x10^3/uL (1.0-4.8) Monocytes # (Auto) 0.5 x10^3/uL (0.0-1.1) Eosinophils # (Auto) 0.1 x10^3/uL (0.0-0.7) Basophils # (Auto) 0.1 x10^3/uL (0.0-0.2) Sodium Level 124 mmol/L (136-145) Potassium Level 4.2 mmol/L (3.5-5.1) Chloride Level 87 mmol/L (98-107) Carbon Dioxide Level 23 mmol/L (21-32) Anion Gap 14 (6-14) Blood Urea Nitrogen 9 mg/dL (7-20) Creatinine 1.4 mg/dL (0.6-1.0) Estimated GFR (Cockcroft-Gault) 47.8 BUN/Creatinine Ratio 6 (6-20) Glucose Level 850 mg/dL (70-99) Calcium Level 9.5 mg/dL (8.5-10.1) Magnesium Level 2.1 mg/dL (1.8-2.4) Total Bilirubin 0.3 mg/dL (0.2-1.0) Aspartate Amino Transf (AST/SGOT) 7 U/L (15-37) Alanine Aminotransferase (ALT/SGPT) 17 U/L (14-59) Alkaline Phosphatase 170 U/L (46-116) Troponin I Quantitative < 0.017 ng/mL (0.000-0.055) Total Protein 8.2 g/dL (6.4-8.2) Albumin 3.5 g/dL (3.4-5.0) Albumin/Globulin Ratio 0.7 (1.0-1.7) Ethyl Alcohol Level < 10 mg/dL (0-10) Acetone Level Neg (NEG) Test 08/30/18 16:10 08/30/18 16:53 08/30/18 17:44 08/30/18 18:38 Glucose (Fingerstick) 433 mg/dL (70-99) 441 mg/dL (70-99) 441 mg/dL (70-99) 421 mg/dL (70-99) Test 08/30/18 20:17 08/30/18 21:08 08/31/18 04:00 08/31/18 07:44 Glucose (Fingerstick) 100 mg/dL (70-99) 118 mg/dL (70-99) 392 mg/dL (70-99) White Blood Count 10.3 x10^3/uL (4.0-11.0) Red Blood Count 4.06 x10^6/uL (3.50-5.40) Hemoglobin 12.6 g/dL (12.0-15.5) Hematocrit 38.1 % (36.0-47.0) Mean Corpuscular Volume 94 fL (79-100) Mean Corpuscular Hemoglobin 31 pg (25-35) Mean Corpuscular Hemoglobin Concent 33 g/dL (31-37) Red Cell Distribution Width 14.5 % (11.5-14.5) Platelet Count 240 x10^3/uL (140-400) Neutrophils (%) (Auto) 70 % (31-73) Lymphocytes (%) (Auto) 24 % (24-48) Monocytes (%) (Auto) 4 % (0-9) Eosinophils (%) (Auto) 2 % (0-3) Basophils (%) (Auto) 1 % (0-3) Neutrophils # (Auto) 7.2 x10^3/uL (1.8-7.7) Lymphocytes # (Auto) 2.4 x10^3/uL (1.0-4.8) Monocytes # (Auto) 0.5 x10^3/uL (0.0-1.1) Eosinophils # (Auto) 0.2 x10^3/uL (0.0-0.7) Basophils # (Auto) 0.1 x10^3/uL (0.0-0.2) Sodium Level 133 mmol/L (136-145) Potassium Level 3.9 mmol/L (3.5-5.1) Chloride Level 99 mmol/L (98-107) Carbon Dioxide Level 25 mmol/L (21-32) Anion Gap 9 (6-14) Blood Urea Nitrogen 10 mg/dL (7-20) Creatinine 1.0 mg/dL (0.6-1.0) Estimated GFR (Cockcroft-Gault) 70.5 BUN/Creatinine Ratio 10 (6-20) Glucose Level 443 mg/dL (70-99) Calcium Level 8.1 mg/dL (8.5-10.1) Total Bilirubin 0.1 mg/dL (0.2-1.0) Aspartate Amino Transf (AST/SGOT) 8 U/L (15-37) Alanine Aminotransferase (ALT/SGPT) 13 U/L (14-59) Alkaline Phosphatase 119 U/L (46-116) Total Protein 6.1 g/dL (6.4-8.2) Albumin 2.4 g/dL (3.4-5.0) Albumin/Globulin Ratio 0.6 (1.0-1.7) Test 08/31/18 10:58 08/31/18 13:13 Glucose (Fingerstick) 400 mg/dL (70-99) 319 mg/dL (70-99) Laboratory Tests Test 08/30/18 14:15 08/30/18 16:10 08/30/18 16:53 08/30/18 17:44 White Blood Count 12.1 x10^3/uL (4.0-11.0) Red Blood Count 4.54 x10^6/uL (3.50-5.40) Hemoglobin 14.2 g/dL (12.0-15.5) Hematocrit 43.4 % (36.0-47.0) Mean Corpuscular Volume 96 fL (79-100) Mean Corpuscular Hemoglobin 31 pg (25-35) Mean Corpuscular Hemoglobin Concent 33 g/dL (31-37) Red Cell Distribution Width 14.6 % (11.5-14.5) Platelet Count 284 x10^3/uL (140-400) Neutrophils (%) (Auto) 79 % (31-73) Lymphocytes (%) (Auto) 15 % (24-48) Monocytes (%) (Auto) 4 % (0-9) Eosinophils (%) (Auto) 1 % (0-3) Basophils (%) (Auto) 1 % (0-3) Neutrophils # (Auto) 9.6 x10^3/uL (1.8-7.7) Lymphocytes # (Auto) 1.8 x10^3/uL (1.0-4.8) Monocytes # (Auto) 0.5 x10^3/uL (0.0-1.1) Eosinophils # (Auto) 0.1 x10^3/uL (0.0-0.7) Basophils # (Auto) 0.1 x10^3/uL (0.0-0.2) Sodium Level 124 mmol/L (136-145) Potassium Level 4.2 mmol/L (3.5-5.1) Chloride Level 87 mmol/L (98-107) Carbon Dioxide Level 23 mmol/L (21-32) Anion Gap 14 (6-14) Blood Urea Nitrogen 9 mg/dL (7-20) Creatinine 1.4 mg/dL (0.6-1.0) Estimated GFR (Cockcroft-Gault) 47.8 BUN/Creatinine Ratio 6 (6-20) Glucose Level 850 mg/dL (70-99) Calcium Level 9.5 mg/dL (8.5-10.1) Magnesium Level 2.1 mg/dL (1.8-2.4) Total Bilirubin 0.3 mg/dL (0.2-1.0) Aspartate Amino Transf (AST/SGOT) 7 U/L (15-37) Alanine Aminotransferase (ALT/SGPT) 17 U/L (14-59) Alkaline Phosphatase 170 U/L (46-116) Troponin I Quantitative < 0.017 ng/mL (0.000-0.055) Total Protein 8.2 g/dL (6.4-8.2) Albumin 3.5 g/dL (3.4-5.0) Albumin/Globulin Ratio 0.7 (1.0-1.7) Ethyl Alcohol Level < 10 mg/dL (0-10) Acetone Level Neg (NEG) Glucose (Fingerstick) 433 mg/dL (70-99) 441 mg/dL (70-99) 441 mg/dL (70-99) Test 08/30/18 18:38 08/30/18 20:17 08/30/18 21:08 08/31/18 04:00 Glucose (Fingerstick) 421 mg/dL (70-99) 100 mg/dL (70-99) 118 mg/dL (70-99) White Blood Count 10.3 x10^3/uL (4.0-11.0) Red Blood Count 4.06 x10^6/uL (3.50-5.40) Hemoglobin 12.6 g/dL (12.0-15.5) Hematocrit 38.1 % (36.0-47.0) Mean Corpuscular Volume 94 fL (79-100) Mean Corpuscular Hemoglobin 31 pg (25-35) Mean Corpuscular Hemoglobin Concent 33 g/dL (31-37) Red Cell Distribution Width 14.5 % (11.5-14.5) Platelet Count 240 x10^3/uL (140-400) Neutrophils (%) (Auto) 70 % (31-73) Lymphocytes (%) (Auto) 24 % (24-48) Monocytes (%) (Auto) 4 % (0-9) Eosinophils (%) (Auto) 2 % (0-3) Basophils (%) (Auto) 1 % (0-3) Neutrophils # (Auto) 7.2 x10^3/uL (1.8-7.7) Lymphocytes # (Auto) 2.4 x10^3/uL (1.0-4.8) Monocytes # (Auto) 0.5 x10^3/uL (0.0-1.1) Eosinophils # (Auto) 0.2 x10^3/uL (0.0-0.7) Basophils # (Auto) 0.1 x10^3/uL (0.0-0.2) Sodium Level 133 mmol/L (136-145) Potassium Level 3.9 mmol/L (3.5-5.1) Chloride Level 99 mmol/L (98-107) Carbon Dioxide Level 25 mmol/L (21-32) Anion Gap 9 (6-14) Blood Urea Nitrogen 10 mg/dL (7-20) Creatinine 1.0 mg/dL (0.6-1.0) Estimated GFR (Cockcroft-Gault) 70.5 BUN/Creatinine Ratio 10 (6-20) Glucose Level 443 mg/dL (70-99) Calcium Level 8.1 mg/dL (8.5-10.1) Total Bilirubin 0.1 mg/dL (0.2-1.0) Aspartate Amino Transf (AST/SGOT) 8 U/L (15-37) Alanine Aminotransferase (ALT/SGPT) 13 U/L (14-59) Alkaline Phosphatase 119 U/L (46-116) Total Protein 6.1 g/dL (6.4-8.2) Albumin 2.4 g/dL (3.4-5.0) Albumin/Globulin Ratio 0.6 (1.0-1.7) Test 08/31/18 07:44 08/31/18 10:58 08/31/18 13:13 Glucose (Fingerstick) 392 mg/dL (70-99) 400 mg/dL (70-99) 319 mg/dL (70-99) Brief Hospital Course Ms. Song is a 53 old admit with wekaness, cough, noted bronchitis, blood sugar 800 range, insulin given, started PO Dm2 meds, she was upset about ADA diet, wanted soda and candy, hard to educate wanted to go out to smoke, nicotine patch placed, which she liked cocaine use denied, she thinks itmight have been placed in a THC joint without her knowledge. she had stopped DM meds because metformin hurt her stomach Discharge Information Condition at Discharge: Improved Follow Up: Weeks Disposition/Orders: D/C to Home Scheduled Doxycycline Hyclate (Doxycycline Hyclate) 100 Mg Capsule, 1 CAP PO BID for bronchitis, #14 Prescribed by: CLIFF RUEDA on 08/31/18 1333 Glyburide (Glyburide) 5 Mg Tablet, 5 MG PO BIDWMEALS for diabetes, #60 Ref 1 Prescribed by: CLIFF RUEDA on 08/31/18 1333 Insulin Glargine,Hum.rec.anlog (Lantus Solostar) 100 Unit/1 Ml Insuln.pen, 20 UNITS SQ QHS for diabetes for 30 Days Prescribed by: CLIFF RUEDA on 08/31/18 1335 Levofloxacin (Levaquin) 500 Mg Tablet, 1 TAB PO DAILY for 7 Days, #7 Prescribed by: LILIANE SMITH on 05/26/17 0849 Lisinopril (Lisinopril) 10 Mg Tablet, 1 TAB PO DAILY, #14 Ref 2 Prescribed by: MATI MURO PA-C on 01/14/17 1120 Metformin Hcl (Glucophage) 850 Mg Tablet, 850 MG PO BIDWMEALS for diabetes, #60 Ref 1 Prescribed by: CLIFF RUEDA on 08/31/18 1333 Tramadol Hcl (Tramadol Hcl) 50 Mg Tablet, 1 TAB PO PRN Q6HRS, #12 Prescribed by: MATI MURO PA-C on 01/14/17 1120 Scheduled PRN Albuterol Sulfate (Proair Hfa Inhaler) 8.5 Gm Hfa.aer.ad, 2 PUFF INH PRN Q6HRS PRN for SHORTNESS OF BREATH, #1 Ref 0 Prescribed by: LILIANE SMITH on 05/26/17 0849 Patient Instructions Patient Instructions > 30 min I tried hard to educate, I doubt effective CLIFF RUEDA MD Aug 31, 2018 13:43
[2018-08-31 15:01] VITALS: BP 124/53
--- NOTE | 2018-08-31 15:35 | NUR ---
patients iv removed and tele off. discussed discharge instructions with patient. patient given prescriptions for doxycycline, lantus, metformin, and glyburide. patient informed to follow up with pcp in 1-2 weeks. patient given written information on diabetic diet. patient has no questions at time of discharge. patient stable at time of discharge. patient escorted to personal vehicle per wheelchair by health education assistant.
[2018-08-31] MEDS ORDERED: glyBURIDE 5 MG TABLET PO SCH (17:00)
[2018-08-31] MEDS ORDERED: LACTOBACILLUS RHAMNOSUS GG 1 CAPSULE. PO SCH (21:00)
[2018-08-31] MEDS ORDERED: INSULIN GLARGINE 300 UNITS/3 ML INSULN.PEN. SQ SCH (21:00)
[2018-09-01] MEDS ORDERED: CEFDINIR 300 MG CAPSULE PO SCH (08:00)
== END 2018-08-31 15:52 | disposition home or self-care (01) | DRG 638 ==
LOC: ER 12:40 → 2 NORTH 15:20
PROVIDERS: ADMIT Family Medicine; ATTEND Family Medicine
DX: E11.00 Type 2 diabetes mellitus with hyperosmolarity without nonketotic hyperglycemic-hyperosmolar coma (NKHHC) (principal); Z68.41 Body mass index [BMI] 40.0-44.9, adult; J20.9 Acute bronchitis, unspecified; A59.9 Trichomoniasis, unspecified; E66.01 Morbid (severe) obesity due to excess calories; F14.10 Cocaine abuse, uncomplicated; F17.210 Nicotine dependence, cigarettes, uncomplicated; I10 Essential (primary) hypertension; K21.9 Gastro-esophageal reflux disease without esophagitis; Z83.3 Family history of diabetes mellitus; Z91.14 Patient's other noncompliance with medication regimen; Z91.19 Patient's noncompliance with other medical treatment and regimen; Z79.4 Long term (current) use of insulin
CPT/HCPCS: 36415; 71046; 80053; 80307; 81001; 81025; 82010; 82962; 83735; 84484; 85025; 93005; 94640; 96361; 96374; G0480; J0696; J1650; J1815; J7030; J7613; 99285-25

== ENCOUNTER 2018-12-04 16:27 | Emergency (ER) | payer SELFPAY ==
[~2018-12-04] VITALS: Ht 165.1 cm; Wt 108.0 kg
[~2018-12-04 16:27] MED LIST changes: +DOXY100C2 PO; +GLYB5TAB3 PO; +INSU100I13 SQ; +METF850T PO
[2018-12-04] MEDS ORDERED: HYDROcodone/APAP 5/325MG 1 TAB TABLET PO ONE (17:00)
--- NOTE | 2018-12-04 17:23 | PHYS DOC ---
Past Medical History Past Medical History: Diabetes-Type II, GERD, Hypertension Past Surgical History: No Surgical History, Other Additional Past Surgical Histo: L KNEE Alcohol Use: Rarely Drug Use: Cocaine, Marijuana Adult General Chief Complaint Chief Complaint: LOWER EXTREMITY EDEMA HPI HPI Patient is a 53 year old AA female who presents to the emergency Department today with complaints of right thigh pain and swelling that radiates down her entire right leg. Patient states she has been in the bathtub all data relieve the pain. She denies any recent travel via car plane, patient denies any history of blood clots. She states she is a smoker [place] pack cigarettes a day. Patient denies any shortness of breath, chest pain, palpitations, numbness, tingling, weakness, or known injury to the affected extremity. She states that the pain is currently a 7 out of 10, the pain increases when she moves her leg or bears weight. She denies any body tenderness. Review of Systems Review of Systems Constitutional: Denies fever or chills [] Eyes: Denies redness, or eye pain [] HENT: Denies nasal congestion or sore throat [] Respiratory: Denies cough or shortness of breath [] Cardiovascular: No additional information not addressed in HPI [] GI: Denies abdominal pain, nausea, vomiting, or diarrhea [] Musculoskeletal: see HPI Integument: Denies erythema, rash, or skin lesions [] Neurologic: Denies headache, focal weakness or sensory changes [] Endocrine: Denies polyuria or polydipsia [] All other systems were reviewed and found to be within normal limits, except as documented in this note. Current Medications Current Medications Current Medications Medications (Trade) Dose Ordered Sig/[facility] Start Time Stop Time Status Last Admin Dose Admin Acetaminophen/ Hydrocodone Bitart (Lortab 5/325) 1 tab 1X ONCE 12/04/18 17:00 12/04/18 17:01 DC 12/04/18 17:00 1 TAB Allergies Allergies Allergies Coded Allergies Type Severity Reaction Last Updated Verified No Known Drug Allergies 08/12/13 No Physical Exam Physical Exam Constitutional: Well developed, well nourished, no acute distress, non-toxic appearance. [] HENT: Normocephalic, atraumatic, bilateral external ears normal, oropharynx moist, no oral exudates, nose normal. [] Eyes: PERRLA, EOMI, conjunctiva normal, no discharge. [] Neck: Normal range of motion, no tenderness, supple, no stridor. [] Cardiovascular:Heart rate regular rhythm, no murmur [] Lungs & Thorax: Bilateral breath sounds clear to auscultation [] Skin: Warm, dry, no erythema, no rash. [] Back: No CVA tenderness. [] Extremities: No bony tenderness, no cyanosis, no clubbing, ROM intact, RLE 1+ edema, R thigh and calf TTP [] Neurologic: Alert and oriented X 3, normal motor function, normal sensory function, no focal deficits noted. [] Psychologic: Affect normal, judgement normal, mood normal. [] Current Patient Data Vital Signs Vital Signs Date Time Temp Pulse Resp B/P (MAP) Pulse Ox O2 Delivery O2 Flow Rate FiO2 12/04/18 17:38 80 16 174/80 (111) 95 Room Air 12/04/18 16:51 98.7 98.7 EKG EKG [] Radiology/Procedures Radiology/Procedures PROCEDURE: VENOUS LOWER EXTREMITY RIGHT INDICATION: Right leg pain and swelling COMPARISON: None. TECHNIQUE: Grayscale, color and doppler ultrasound images were obtained of the right lower extremity venous vasculature. RIGHT: No thrombus identified in the common femoral vein, femoral vein, popliteal vein or visualized calf veins. IMPRESSION: * No thrombus identified in deep venous system of right lower extremity.[] Course & Med Decision Making Course & Med Decision Making Pertinent Labs and Imaging studies reviewed. (See chart for details) dx: R leg pain Pt given a hydrocodone 5/325 in the ER for pain, reports decreased pain after medication. US negative for DVT. Apply heat as needed for comfort. Follow up with PCP next week, take BP meds as prescribed. Pt verbalized an understanding of home care, medications, follow-up, and return to ED instructions and was in agreement with the plan of care. [] Dragon Disclaimer Dragon Disclaimer This electronic medical record was generated, in whole or in part, using a voice recognition dictation system. Departure Departure Impression: Primary Impression: Pain of right leg Disposition: 01 HOME, SELF-CARE Condition: STABLE Referrals: NO PCP (PCP) Patient Instructions: Leg Cramps Additional Instructions: Apply heat to painful areas as needed for relief. Take tylenol as needed for pain. Take your blood pressure as prescribed, follow up your primary care doctor next week. Return to the ER if symptoms worsen. ALICE SANDRA APRN Dec 04, 2018 17:23
--- NOTE | 2018-12-04 17:56 | RAD ---
INDICATION: Right leg pain and swelling COMPARISON: None. TECHNIQUE: Grayscale, color and doppler ultrasound images were obtained of the right lower extremity venous vasculature. RIGHT: No thrombus identified in the common femoral vein, femoral vein, popliteal vein or visualized calf veins. IMPRESSION: * No thrombus identified in deep venous system of right lower extremity. Electronically signed by: Aidan Leiva MD (12/04/2018 5:54 PM) [id number]
[2018-12-04 18:00] VITALS: BP 177/80
== END 2018-12-04 18:42 | disposition home or self-care (01) ==
LOC: ER 16:27
DX: M79.651 Pain in right thigh (principal); E11.9 Type 2 diabetes mellitus without complications; K21.9 Gastro-esophageal reflux disease without esophagitis; I10 Essential (primary) hypertension
CPT/HCPCS: 93971; 99284

== ENCOUNTER 2019-03-28 14:23 | Inpatient (IN) | payer SELFPAY ==
[~2019-03-28] VITALS: Ht 165.1 cm; Wt 100.1 kg
--- NOTE | 2019-03-28 16:12 | PHYS DOC ---
Past Medical History Past Medical History: Diabetes-Type II, GERD, Hypertension Past Surgical History: No Surgical History, Other Additional Past Surgical Histo: L KNEE Smoking Status: Current Every Day Smoker Alcohol Use: Rarely Drug Use: Cocaine, Marijuana Adult General Chief Complaint Chief Complaint: HYPERGLYCEMIA HPI HPI Patient is a 54 year old female who presents with fatigue, hyperglycemia. Patient reports she has been checking her blood sugar at home, finding it to be 600 recently. States she had been seen in her primary care 3 days earlier, was told within the emergency room, she did not at that time. States she just feels really dry and thirsty, had been drinking a lot of water yesterday trying to help her symptoms, however they did not help. States she has not been on insulin, however she has been on Jardiance and metformin. Denies any shortness of breath, does report chronic cough. States she just feels weak. Patient reports she does try to take her diabetic medications, however is not always taking apparently. Does admit to smoking crack cocaine for the last couple days. Review of Systems Review of Systems Constitutional: Denies fever or chills reports malaise[] Eyes: Denies change in visual acuity, redness, or eye pain [] HENT: Denies nasal congestion or sore throat [] Respiratory: Reports cough, occasional shortness of breath, also reports that she is a smoker and has frequent coughing[] Cardiovascular: No additional information not addressed in HPI [] GI: Denies abdominal pain, does report some nausea, denies vomiting, does report some bloody stools recently : Denies dysuria or hematuria [] Musculoskeletal: Denies back pain or joint pain [] Integument: Denies rash or skin lesions [] Neurologic: Denies headache, focal weakness or sensory changes [] Endocrine: Reports polydipsia[] All other systems were reviewed and found to be within normal limits, except as documented in this note. Current Medications Current Medications Current Medications Medications (Trade) Dose Ordered Sig/[facility] Start Time Stop Time Status Last Admin Dose Admin Ondansetron HCl (Zofran) 4 mg 1X ONCE 03/28/19 16:15 03/28/19 16:16 DC 03/28/19 16:41 4 MG Sodium Chloride 1,000 ml @ 1,000 mls/hr 1X ONCE 03/28/19 16:15 03/28/19 17:14 DC 03/28/19 16:42 1,000 MLS/HR Allergies Allergies Allergies Coded Allergies Type Severity Reaction Last Updated Verified No Known Drug Allergies 08/12/13 No Physical Exam Physical Exam Constitutional: Well developed, well nourished, no acute distress, non-toxic appearance. [] HENT: Normocephalic, atraumatic, bilateral external ears normal, oropharynx moist, no oral exudates, nose normal. [] Eyes: PERRLA, EOMI, conjunctiva normal, no discharge. [] Neck: Normal range of motion, no tenderness, supple, no stridor. [] Cardiovascular:Heart rate regular rhythm, no murmur [] Lungs & Thorax: Bilateral breath sounds faint wheezing noted[] Abdomen: Bowel sounds normal, soft, no tenderness, no masses, no pulsatile masses. [] Skin: Warm, dry, no erythema, no rash. [] Back: No tenderness, no CVA tenderness. [] Extremities: No tenderness, no cyanosis, no clubbing, ROM intact, no edema. [] Neurologic: Alert and oriented X 3, normal motor function, normal sensory function, no focal deficits noted. [] Psychologic: Affect normal, judgement normal, mood normal. [] Current Patient Data Vital Signs Vital Signs Date Time Temp Pulse Resp B/P (MAP) Pulse Ox O2 Delivery O2 Flow Rate FiO2 03/28/19 15:48 98.3 105 20 107/71 (83) 96 Room Air 98.3 Lab Values Laboratory Tests Test 03/28/19 14:57 03/28/19 16:22 03/28/19 16:31 Glucose (Fingerstick) 545 mg/dL (70-99) *H White Blood Count 11.7 x10^3/uL (4.0-11.0) H Red Blood Count 4.71 x10^6/uL (3.50-5.40) Hemoglobin 14.5 g/dL (12.0-15.5) Hematocrit 43.8 % (36.0-47.0) Mean Corpuscular Volume 93 fL (79-100) Mean Corpuscular Hemoglobin 31 pg (25-35) Mean Corpuscular Hemoglobin Concent 33 g/dL (31-37) Red Cell Distribution Width 15.2 % (11.5-14.5) H Platelet Count 290 x10^3/uL (140-400) Neutrophils (%) (Auto) 75 % (31-73) H Lymphocytes (%) (Auto) 18 % (24-48) L Monocytes (%) (Auto) 6 % (0-9) Eosinophils (%) (Auto) 1 % (0-3) Basophils (%) (Auto) 1 % (0-3) Neutrophils # (Auto) 8.7 x10^3/uL (1.8-7.7) H Lymphocytes # (Auto) 2.1 x10^3/uL (1.0-4.8) Monocytes # (Auto) 0.7 x10^3/uL (0.0-1.1) Eosinophils # (Auto) 0.1 x10^3/uL (0.0-0.7) Basophils # (Auto) 0.1 x10^3/uL (0.0-0.2) Prothrombin Time 11.2 SEC (11.7-14.0) L Prothrombin Time INR 0.8 (0.8-1.1) Sodium Level 128 mmol/L (136-145) L Potassium Level 4.3 mmol/L (3.5-5.1) Chloride Level 92 mmol/L (98-107) L Carbon Dioxide Level 20 mmol/L (21-32) L Anion Gap 16 (6-14) H Blood Urea Nitrogen 16 mg/dL (7-20) Creatinine 1.8 mg/dL (0.6-1.0) H Estimated GFR (Cockcroft-Gault) 35.6 BUN/Creatinine Ratio 9 (6-20) Glucose Level 605 mg/dL (70-99) *H Calcium Level 9.0 mg/dL (8.5-10.1) Phosphorus Level 5.9 mg/dL (2.6-4.7) H Magnesium Level 1.9 mg/dL (1.8-2.4) Total Bilirubin 0.3 mg/dL (0.2-1.0) Aspartate Amino Transferase (AST) 12 U/L (15-37) L Alanine Aminotransferase (ALT) 19 U/L (14-59) Alkaline Phosphatase 110 U/L (46-116) Troponin I Quantitative < 0.017 ng/mL (0.000-0.055) Total Protein 7.1 g/dL (6.4-8.2) Albumin 3.5 g/dL (3.4-5.0) Albumin/Globulin Ratio 1.0 (1.0-1.7) Acetone Level Neg (NEG) Urine Collection Type Unknown Urine Color Yellow Urine Clarity Clear Urine pH 5.5 Urine Specific [place] >=1.030 Urine Protein Negative mg/dL (NEG-TRACE) Urine Glucose (UA) >=1000 mg/dL (NEG) Urine Ketones (Stick) Negative mg/dL (NEG) Urine Blood Negative (NEG) Urine Nitrite Negative (NEG) Urine Bilirubin Negative (NEG) Urine Urobilinogen Dipstick 0.2 mg/dL (0.2 mg/dL) Urine Leukocyte Esterase Negative (NEG) Urine RBC Occ /HPF (0-2) Urine WBC Occ /HPF (0-4) Urine Squamous Epithelial Cells Mod /LPF Urine Bacteria Few /HPF (0-FEW) Urine Yeast Present /HPF Stool Occult Blood Positive (NEG) Urine Opiates Screen Neg (NEG) Urine Methadone Screen Neg (NEG) Urine Barbiturates Neg (NEG) Urine Phencyclidine Screen Neg (NEG) Urine Amphetamine/Methamphetamine Neg (NEG) Urine Benzodiazepines Screen Neg (NEG) Urine Cocaine Screen Pos (NEG) Urine Cannabinoids Screen Neg (NEG) Urine Ethyl Alcohol Neg (NEG) Laboratory Tests 03/28/19 16:22 Laboratory Tests 03/28/19 16:22 EKG EKG [] Radiology/Procedures Radiology/Procedures [] Course & Med Decision Making Course & Med Decision Making Pertinent Labs and Imaging studies reviewed. (See chart for details) [Discussed with Dr Escobedo, agrees to admission Will start DKA protocol] Joseph Disclaimer Joseph Disclaimer This electronic medical record was generated, in whole or in part, using a voice recognition dictation system. Departure Departure Impression: Primary Impression: Nonketotic hyperglycinemia Disposition: ADMITTED INPATIENT Admitting Physician: KELSI Referrals: NO PCP (PCP) MATI KELLY APRN Mar 28, 2019 16:12
[2019-03-28] MEDS ORDERED: ONDANSETRON PF 4 MG/2 ML VIAL. IVP ONE (16:15)
[2019-03-28] MEDS ORDERED: IV NORMAL SALINE 1000ML BAG 1,000 ML IV ONE (16:15)
[2019-03-28 16:30] LABS: BASO # 0.1 x10^3/uL (0.0-0.2); BASO % 1 % (0-3); EOS # 0.1 x10^3/uL (0.0-0.7); EOS % 1 % (0-3); HEMATOCRIT 43.8 % (36.0-47.0); HEMOGLOBIN 14.5 g/dL (12.0-15.5); LYMPH # 2.1 x10^3/uL (1.0-4.8); LYMPH % 18 % (24-48); MEAN CORPUSCULAR HEMOGLOBIN 31 pg (25-35); MEAN CORPUSCULAR HGB CONC 33 g/dL (31-37); MEAN CORPUSCULAR VOLUME 93 fL (79-100); MONO # 0.7 x10^3/uL (0.0-1.1); MONO % 6 % (0-9); NEUT # 8.7 x10^3/uL (1.8-7.7); NEUT % 75 % (31-73); PLATELET COUNT 290 x10^3/uL (140-400); RED BLOOD COUNT 4.71 x10^6/uL (3.50-5.40); RED CELL DISTRIBUTION WIDTH 15.2 % (11.5-14.5); WHITE BLOOD COUNT 11.7 x10^3/uL (4.0-11.0)
[2019-03-28 16:43] LABS: BILIRUBIN,URINE NEGATIVE (NEG); CLARITY,URINE CLEAR; COLOR,URINE YELLOW; NITRITE,URINE NEGATIVE (NEG); PH,URINE 5.5; PROTEIN,URINE NEGATIVE (NEG-TRACE); UROBILINOGEN,URINE 0.2 mg/dL (0.2 mg/dL)
[2019-03-28 16:44] LABS: PROTHROMBIN TIME PATIENT 11.2 SEC (11.7-14.0)
[2019-03-28 16:46] LABS: BACTERIA,URINE FEW /HPF (0-FEW); RBC,URINE OCC /HPF (0-2); SQUAMOUS EPITHELIAL CELL,UR MOD /LPF; WBC,URINE OCC /HPF (0-4)
[2019-03-28 16:47] LABS: YEAST,URINE PRESENT /HPF
[2019-03-28 16:49] LABS: ALBUMIN 3.5 g/dL (3.4-5.0); CREATININE 1.8 mg/dL (0.6-1.0); GFR 35.6; MAGNESIUM 1.9 mg/dL (1.8-2.4); PHOSPHORUS 5.9 mg/dL (2.6-4.7); POTASSIUM 4.3 mmol/L (3.5-5.1); TOTAL BILIRUBIN 0.3 mg/dL (0.2-1.0); TOTAL PROTEIN 7.1 g/dL (6.4-8.2)
[2019-03-28 16:49] LABS: BARBITURATES NEG (NEG); BENZODIAZEPINES NEG (NEG); CANNABINOIDS NEG (NEG); COCAINE POS (NEG); METHADONE NEG (NEG); OPIATES NEG (NEG); PHENCYCLIDINE NEG (NEG)
[2019-03-28 16:56] LABS: AMPHETAMINE/METHAMPHETAMINE NEG (NEG)
[2019-03-28 17:07] LABS: FECAL OB PT POSITIVE (NEG)
--- NOTE | 2019-03-28 17:32 | RAD ---
Exam: Chest one view INDICATION: Short of air TECHNIQUE: Frontal view of chest Comparisons: 08/30/2018 FINDINGS: The cardiomediastinal silhouette and pulmonary vessels are within normal limits. The lung and pleural spaces are clear. IMPRESSION: No acute cardiopulmonary process. Electronically signed by: Asher Allen MD (03/28/2019 5:29 PM) [id number]
[2019-03-28] MEDS ORDERED: IV NORMAL SALINE 1000ML BAG 1,000 ML IV SCH (18:10)
[2019-03-28] MEDS ORDERED: POTASSIUM CHLORIDE 10MEQ 100 ML IV PRN ×3 (18:15)
[2019-03-28] MEDS ORDERED: INSULIN REGULAR VIAL 100 UNIT in IV NORMAL SALINE 100ML 100 ML IV PRN ×2 (18:15→19:45)
[2019-03-28] MEDS ORDERED: INSULIN,REGULAR 100 UNIT DRIP 100 ML IV ONE ×2 (18:15→19:30)
[2019-03-28] MEDS ORDERED: INSULIN REGULAR VIAL 100 UNIT in IV NORMAL SALINE 100ML IV PRN (19:30)
--- NOTE | 2019-03-28 19:56 | PDOC1 ---
History and Physical Date of Admission Date of Admission DATE: 03/28/19 TIME: 19:55 Identification/Chief Complaint Chief Complaint SEEN IN , 54 year old female who presents with fatigue, hyperglycemia. Patient reports she has been checking her blood sugar at home, finding it to be 600 recently. States she had been seen in her primary care 3 days earlier, was told within the emergency room, she did not at that time. States she just feels really dry and thirsty, had been drinking a lot of water yesterday trying to help her symptoms, however they did not help. States she has not been on insulin, however she has been on Jardiance and metformin. Denies any shortness of breath, does report chronic cough. States she just feels weak. Patient reports she does try to take her diabetic medications, however is not always taking Does admit to smoking crack cocaine for the last couple days. ADMITS TO EATING LOTS OF GRAPEFRUIT Past Medical History Past Medical History Past Medical History Past Medical History: Diabetes-Type II, GERD, Hypertension Past Surgical History: No Surgical History, Other Additional Past Surgical Histo: L KNEE Smoking Status: Current Every Day Smoker Alcohol Use: Rarely Drug Use: Cocaine, Marijuana fhx HTN Cardiovascular: HTN, Hyperlipidemia Psych: Addictions Endocrine: Diabetes Family History Family History: Alcohol Abuse, High Cholestrol Social History Smoke: <1 pack per day ALCOHOL: none Drugs: Cocaine, Marijuana Current Problem List Problem List Problems Medical Problems: (1) Nonketotic hyperglycinemia Status: Acute Current Medications Current Medications Current Medications Sodium Chloride 1,000 ml @ 1,000 mls/hr 1X ONCE IV Last administered on 03/28/19at 16:42; Start 03/28/19 at 16:15; Stop 03/28/19 at 17:14; Status DC Ondansetron HCl (Zofran) 4 mg 1X ONCE IVP Last administered on 03/28/19at 16:41; Start 03/28/19 at 16:15; Stop 03/28/19 at 16:16; Status DC Sodium Chloride 1,000 ml @ 1,000 mls/hr Q1H IV Last administered on 03/28/19at 18:40; Start 03/28/19 at 18:10; Stop 03/28/19 at 19:09; Status DC Insulin Human Regular 100 unit/ Sodium Chloride 101 ml @ 9.797 mls/ hr CONT PRN PRN IV PER PROTOCOL; Start 03/28/19 at 18:15; Stop 03/28/19 at 19:48; Status DC Potassium Chloride/Water 100 ml @ 100 mls/hr PRN Q1HR PRN IV SEE COMMENTS; Start 03/28/19 at 18:15 Potassium Chloride/Water 100 ml @ 100 mls/hr PRN Q1HR PRN IV SEE COMMENTS; Start 03/28/19 at 18:15 Potassium Chloride/Water 100 ml @ 100 mls/hr PRN Q1HR PRN IV SEE COMMENTS; Start 03/28/19 at 18:15 Insulin Human Regular 100 ml @ 0 mls/hr 1X ONCE IV ; Start 03/28/19 at 18:15; Stop 03/28/19 at 19:48; Status DC Insulin Human Regular 100 ml @ 0 mls/hr 1X ONCE IV ; Start 03/28/19 at 19:30; Stop 03/28/19 at 19:31; Status Cancel Insulin Human Regular 100 unit/ Sodium Chloride 101 ml @ 9.797 mls/ hr CONT PRN IV SEE I/O RECORD; Start 03/28/19 at 19:30; Status Cancel Insulin Human Regular 100 unit/ Sodium Chloride 101 ml @ 0 mls/hr CONT PRN PRN IV PER PROTOCOL; Start 03/28/19 at 19:45; Status UNV Active Scripts Active Lantus Solostar (Insulin Glargine,Hum.rec.anlog) 100 Unit/1 Ml Insuln.pen 20 Units SQ QHS 30 Days Doxycycline Hyclate 100 Mg Capsule 1 Cap PO BID Glucophage (Metformin Hcl) 850 Mg Tablet 850 Mg PO BIDWMEALS Glyburide 5 Mg Tablet 5 Mg PO BIDWMEALS Proair Hfa Inhaler (Albuterol Sulfate) 8.5 Gm Hfa.aer.ad 2 Puff INH PRN Q6HRS PRN Allergies Allergies: Coded Allergies: No Known Drug Allergies (Unverified , 08/12/13) Physical Exam Physical Exam Review of Systems Review of Systems Constitutional: Denies fever or chills. Reports generalized fatigue and weakness Eyes: Denies change in visual acuity, redness, or eye pain [] HENT: Denies nasal congestion or sore throat [] Respiratory: Denies shortness of breath. Reports intermittent prod. cough Cardiovascular: Denies CP/palpitations GI: Denies abdominal pain, vomiting, bloody stools or diarrhea. Reports intermittent nausea and decreased appetite : Denies dysuria or hematuria. Reports urinary frequency Musculoskeletal: Denies back/neck pain or joint pain [] Integument: Denies rash, swelling or skin lesions [] Neurologic: Denies headache, focal weakness or sensory changes [] Endocrine: Reports polyuria // polydipsia [] 14 PT systems were reviewed and found to be within normal limits, except as documented . Physical Exam Physical Exam Physical Exam Physical Exam Constitutional: Well developed, well nourished, no acute distress, non-toxic appearance. [] HENT: Normocephalic, atraumatic, mucous membranes pink/dry, nose normal. [] Eyes: PERRLA, no nystagmus, conjunctiva normal, no discharge. [] Neck: Normal range of motion, no tenderness, supple, no stridor. [] Cardiovascular: Heart rate regular rhythm, no murmur [] Lungs & Thorax: Bilateral breath sounds clear to auscultation- resp. equal/nonlabored Abdomen: Bowel sounds normal, soft-no distention or rigidity, no tenderness, no masses, no pulsatile masses. [] Skin: Warm, dry, no erythema, no rash. [] Back: No tenderness, no CVA tenderness. [] Extremities: No tenderness, no cyanosis, no clubbing, ROM intact, no edema. [] Neurologic: Alert and oriented X 3, normal motor function, normal sensory function, no focal deficits noted. [] Psychologic: Affect normal, judgement POOR mood normal. [] General: Alert, Oriented X3, Cooperative, No acute distress HEENT: Atraumatic Heart: RRR, no thrills Breasts: Not examined Abdomen: Normal bowel sounds, Soft Rectal Exam: not examined PELVIC: Examination not indicated Extremities: No cyanosis Neuro: Normal speech, Cranial nerves 3-12 NL Psych/Mental Status: Mental status NL, Mood NL General: Alert, Oriented X3, Cooperative, No acute distress HEENT: Atraumatic, EOMI, Mucous membr. moist/pink Lungs: Clear to auscultation, Normal air movement Heart: RRR, no murmurs Breasts: Not examined Abdomen: Normal bowel sounds, Soft Rectal Exam: not examined PELVIC: Examination not indicated Extremities: No cyanosis, No edema Neuro: Normal speech, Normal tone, Cranial nerves 3-12 NL Psych/Mental Status: Mental status NL, Mood NL Vitals Vitals Vital Signs Date Time Temp Pulse Resp B/P (MAP) Pulse Ox O2 Delivery O2 Flow Rate FiO2 03/28/19 18:32 82 103/54 (70) 98 Room Air 03/28/19 18:15 18 03/28/19 15:48 98.3 98.3 Labs Labs Laboratory Tests Test 03/28/19 14:57 03/28/19 16:22 03/28/19 16:31 03/28/19 18:15 Glucose (Fingerstick) 545 mg/dL (70-99) White Blood Count 11.7 x10^3/uL (4.0-11.0) Red Blood Count 4.71 x10^6/uL (3.50-5.40) Hemoglobin 14.5 g/dL (12.0-15.5) Hematocrit 43.8 % (36.0-47.0) Mean Corpuscular Volume 93 fL (79-100) Mean Corpuscular Hemoglobin 31 pg (25-35) Mean Corpuscular Hemoglobin Concent 33 g/dL (31-37) Red Cell Distribution Width 15.2 % (11.5-14.5) Platelet Count 290 x10^3/uL (140-400) Neutrophils (%) (Auto) 75 % (31-73) Lymphocytes (%) (Auto) 18 % (24-48) Monocytes (%) (Auto) 6 % (0-9) Eosinophils (%) (Auto) 1 % (0-3) Basophils (%) (Auto) 1 % (0-3) Neutrophils # (Auto) 8.7 x10^3/uL (1.8-7.7) Lymphocytes # (Auto) 2.1 x10^3/uL (1.0-4.8) Monocytes # (Auto) 0.7 x10^3/uL (0.0-1.1) Eosinophils # (Auto) 0.1 x10^3/uL (0.0-0.7) Basophils # (Auto) 0.1 x10^3/uL (0.0-0.2) Prothrombin Time 11.2 SEC (11.7-14.0) Prothromb Time International Ratio 0.8 (0.8-1.1) Sodium Level 128 mmol/L (136-145) Potassium Level 4.3 mmol/L (3.5-5.1) Chloride Level 92 mmol/L (98-107) Carbon Dioxide Level 20 mmol/L (21-32) Anion Gap 16 (6-14) Blood Urea Nitrogen 16 mg/dL (7-20) Creatinine 1.8 mg/dL (0.6-1.0) Estimated GFR (Cockcroft-Gault) 35.6 BUN/Creatinine Ratio 9 (6-20) Glucose Level 605 mg/dL (70-99) Calcium Level 9.0 mg/dL (8.5-10.1) Phosphorus Level 5.9 mg/dL (2.6-4.7) Magnesium Level 1.9 mg/dL (1.8-2.4) Total Bilirubin 0.3 mg/dL (0.2-1.0) Aspartate Amino Transf (AST/SGOT) 12 U/L (15-37) Alanine Aminotransferase (ALT/SGPT) 19 U/L (14-59) Alkaline Phosphatase 110 U/L (46-116) Troponin I Quantitative < 0.017 ng/mL (0.000-0.055) Total Protein 7.1 g/dL (6.4-8.2) Albumin 3.5 g/dL (3.4-5.0) Albumin/Globulin Ratio 1.0 (1.0-1.7) Acetone Level Neg (NEG) Urine Collection Type Unknown Urine Color Yellow Urine Clarity Clear Urine pH 5.5 Urine Specific [place] >=1.030 Urine Protein Negative mg/dL (NEG-TRACE) Urine Glucose (UA) >=1000 mg/dL (NEG) Urine Ketones (Stick) Negative mg/dL (NEG) Urine Blood Negative (NEG) Urine Nitrite Negative (NEG) Urine Bilirubin Negative (NEG) Urine Urobilinogen Dipstick 0.2 mg/dL (0.2 mg/dL) Urine Leukocyte Esterase Negative (NEG) Urine RBC Occ /HPF (0-2) Urine WBC Occ /HPF (0-4) Urine Squamous Epithelial Cells Mod /LPF Urine Bacteria Few /HPF (0-FEW) Urine Yeast Present /HPF Stool Occult Blood Positive (NEG) Urine Opiates Screen Neg (NEG) Urine Methadone Screen Neg (NEG) Urine Barbiturates Neg (NEG) Urine Phencyclidine Screen Neg (NEG) Urine Amphetamine/Methamphetamine Neg (NEG) Urine Benzodiazepines Screen Neg (NEG) Urine Cocaine Screen Pos (NEG) Urine Cannabinoids Screen Neg (NEG) Urine Ethyl Alcohol Neg (NEG) Lactic Acid Level 1.8 mmol/L (0.4-2.0) Test 03/28/19 18:55 Glucose (Fingerstick) 406 mg/dL (70-99) Laboratory Tests Test 03/28/19 14:57 03/28/19 16:22 03/28/19 16:31 03/28/19 18:15 Glucose (Fingerstick) 545 mg/dL (70-99) White Blood Count 11.7 x10^3/uL (4.0-11.0) Red Blood Count 4.71 x10^6/uL (3.50-5.40) Hemoglobin 14.5 g/dL (12.0-15.5) Hematocrit 43.8 % (36.0-47.0) Mean Corpuscular Volume 93 fL (79-100) Mean Corpuscular Hemoglobin 31 pg (25-35) Mean Corpuscular Hemoglobin Concent 33 g/dL (31-37) Red Cell Distribution Width 15.2 % (11.5-14.5) Platelet Count 290 x10^3/uL (140-400) Neutrophils (%) (Auto) 75 % (31-73) Lymphocytes (%) (Auto) 18 % (24-48) Monocytes (%) (Auto) 6 % (0-9) Eosinophils (%) (Auto) 1 % (0-3) Basophils (%) (Auto) 1 % (0-3) Neutrophils # (Auto) 8.7 x10^3/uL (1.8-7.7) Lymphocytes # (Auto) 2.1 x10^3/uL (1.0-4.8) Monocytes # (Auto) 0.7 x10^3/uL (0.0-1.1) Eosinophils # (Auto) 0.1 x10^3/uL (0.0-0.7) Basophils # (Auto) 0.1 x10^3/uL (0.0-0.2) Prothrombin Time 11.2 SEC (11.7-14.0) Prothromb Time International Ratio 0.8 (0.8-1.1) Sodium Level 128 mmol/L (136-145) Potassium Level 4.3 mmol/L (3.5-5.1) Chloride Level 92 mmol/L (98-107) Carbon Dioxide Level 20 mmol/L (21-32) Anion Gap 16 (6-14) Blood Urea Nitrogen 16 mg/dL (7-20) Creatinine 1.8 mg/dL (0.6-1.0) Estimated GFR (Cockcroft-Gault) 35.6 BUN/Creatinine Ratio 9 (6-20) Glucose Level 605 mg/dL (70-99) Calcium Level 9.0 mg/dL (8.5-10.1) Phosphorus Level 5.9 mg/dL (2.6-4.7) Magnesium Level 1.9 mg/dL (1.8-2.4) Total Bilirubin 0.3 mg/dL (0.2-1.0) Aspartate Amino Transf (AST/SGOT) 12 U/L (15-37) Alanine Aminotransferase (ALT/SGPT) 19 U/L (14-59) Alkaline Phosphatase 110 U/L (46-116) Troponin I Quantitative < 0.017 ng/mL (0.000-0.055) Total Protein 7.1 g/dL (6.4-8.2) Albumin 3.5 g/dL (3.4-5.0) Albumin/Globulin Ratio 1.0 (1.0-1.7) Acetone Level Neg (NEG) Urine Collection Type Unknown Urine Color Yellow Urine Clarity Clear Urine pH 5.5 Urine Specific [place] >=1.030 Urine Protein Negative mg/dL (NEG-TRACE) Urine Glucose (UA) >=1000 mg/dL (NEG) Urine Ketones (Stick) Negative mg/dL (NEG) Urine Blood Negative (NEG) Urine Nitrite Negative (NEG) Urine Bilirubin Negative (NEG) Urine Urobilinogen Dipstick 0.2 mg/dL (0.2 mg/dL) Urine Leukocyte Esterase Negative (NEG) Urine RBC Occ /HPF (0-2) Urine WBC Occ /HPF (0-4) Urine Squamous Epithelial Cells Mod /LPF Urine Bacteria Few /HPF (0-FEW) Urine Yeast Present /HPF Stool Occult Blood Positive (NEG) Urine Opiates Screen Neg (NEG) Urine Methadone Screen Neg (NEG) Urine Barbiturates Neg (NEG) Urine Phencyclidine Screen Neg (NEG) Urine Amphetamine/Methamphetamine Neg (NEG) Urine Benzodiazepines Screen Neg (NEG) Urine Cocaine Screen Pos (NEG) Urine Cannabinoids Screen Neg (NEG) Urine Ethyl Alcohol Neg (NEG) Lactic Acid Level 1.8 mmol/L (0.4-2.0) Test 03/28/19 18:55 Glucose (Fingerstick) 406 mg/dL (70-99) Images Images Exam: Chest one view INDICATION: Short of air TECHNIQUE: Frontal view of chest Comparisons: 08/30/2018 FINDINGS: The cardiomediastinal silhouette and pulmonary vessels are within normal limits. The lung and pleural spaces are clear. IMPRESSION: No acute cardiopulmonary process. Electronically signed by: Asher Allen MD (03/28/2019 5:29 PM) [id number] VTE Prophylaxis Ordered VTE Prophylaxis Devices: Yes VTE Pharmacological Prophylaxi: Yes Assessment/Plan Assessment/Plan IMPRESSION Dm2, uncontrolled hyperosmolar not ketotic state obesity, MORBID BMI 41 cocaine abuse CHRONIC AND RECENT tobacco use disorder REMOTE ALCOHOL ABUSE, " stopped 8 weeks ago" noncompliance with meds, gerd HX HYPERTENSION ADMIT ICU INSULIN DRIP PROTOCOL DVT PROPHYLAXIS 37 MIN CC TIME KARELY HILL MD Mar 28, 2019 19:56
[2019-03-28 20:00] VITALS: BP 104/60
[2019-03-28] MEDS ORDERED: IPRATRPIUM/ALBUTEROL 0.5/2.5MG 3 ML NEBU. NEB SCH (20:15)
[2019-03-28] MEDS ORDERED: cloNIDine HCL 0.1 MG TABLET PO PRN (20:15)
[2019-03-28] MEDS ORDERED: ONDANSETRON PF 4 MG/2 ML VIAL. IV PRN (20:15)
[2019-03-28] MEDS ORDERED: DOCUSATE SODIUM 100 MG CAPSULE. PO PRN (20:15)
[2019-03-28] MEDS ORDERED: 0.9 % SODIUM CHLORIDE 10 ML DISP.SYRIN. IV PRN (20:15)
[2019-03-28] MEDS ORDERED: LORazepam 0.5 MG TABLET PO PRN (20:15)
[2019-03-28] MEDS ORDERED: guaiFENesin ORAL 200 MG/10 ML LIQUID. PO PRN (20:15)
[2019-03-28] MEDS ORDERED: METF10007 PO (20:50)
[2019-03-28] MEDS ORDERED: EMPA10TA PO (20:50)
[2019-03-28] MEDS ORDERED: LISI-334 PO (20:50)
[2019-03-28 21:00] VITALS: BP 99/48
[2019-03-28] MEDS: ENOXAPARIN 40 MG/0.4 ML SYRINGE. SQ SCH (21:22)
[2019-03-28] MEDS: IV NORMAL SALINE 1000ML BAG 1,000 ML IV SCH (21:23)
[2019-03-28 22:00] VITALS: BP 106/50
[2019-03-28 23:00] VITALS: BP 135/53
--- NOTE | 2019-03-28 23:34 | EKG ---
[facility] [address] [place] [address] Test Date: 2019-03-28 Test Time: 16:11:30 Pat Name: ANALIA LITTLE Department: Room: Gender: F Classifications Officer Cc/Cm: : 1965 Requested By: MATI KELLY Order Number: [id number] Reading MD: Measurements Intervals [place] Rate: 99 P: 64 OH: 130 QRS: 47 QRSD: 86 T: 22 QT: 376 QTc: 482 Interpretive Statements SINUS RHYTHM QRS(T) CONTOUR ABNORMALITY CONSIDER INFERIOR MYOCARDIAL DAMAGE PROLONGED QT POSSIBLY ABNORMAL ECG RI6.01 No previous ECG available for comparison
[2019-03-29] VITALS (16 sets, daily range): BP systolic 91–158; BP diastolic 43–66
[2019-03-29] MEDS: IV NORMAL SALINE 1000ML BAG 1,000 ML IV SCH (07:23)
[2019-03-29] MEDS: INSULIN LISPRO 300 UNITS/3 ML VIAL. SQ SCH ×3 (08:00→17:36)
[2019-03-29] MEDS: IPRATRPIUM/ALBUTEROL 0.5/2.5MG 3 ML NEBU. NEB SCH ×4 (08:13→19:48)
[2019-03-29] MEDS ORDERED: DEXTROSE 50% 25 GM / 50ML DISP.SYRIN. IV PRN (08:30)
[2019-03-29 10:07] LABS: CALCIUM 8.4 mg/dL (8.5-10.1); GFR 70.2; POTASSIUM 3.5 mmol/L (3.5-5.1)
[2019-03-29 10:58] LABS: BASO % 0 % (0-3); EOS # 0.1 x10^3/uL (0.0-0.7); EOS % 1 % (0-3); HEMATOCRIT 39.1 % (36.0-47.0); HEMOGLOBIN 12.7 g/dL (12.0-15.5); LYMPH # 3.6 x10^3/uL (1.0-4.8); LYMPH % 31 % (24-48); MEAN CORPUSCULAR HEMOGLOBIN 31 pg (25-35); MEAN CORPUSCULAR HGB CONC 33 g/dL (31-37); MEAN CORPUSCULAR VOLUME 94 fL (79-100); MONO # 0.7 x10^3/uL (0.0-1.1); MONO % 6 % (0-9); NEUT # 7.3 x10^3/uL (1.8-7.7); NEUT % 62 % (31-73); PLATELET COUNT 247 x10^3/uL (140-400); RED BLOOD COUNT 4.17 x10^6/uL (3.50-5.40); RED CELL DISTRIBUTION WIDTH 15.5 % (11.5-14.5); WHITE BLOOD COUNT 11.7 x10^3/uL (4.0-11.0)
--- NOTE | 2019-03-29 12:00 | PDOC ---
[employer] PROGRESS NOTE Chief Complaint Chief Complaint hyperosmolar not ketotic state DM2 obesity, MORBID BMI 41 cocaine abuse CHRONIC AND RECENT tobacco use disorder REMOTE ALCOHOL ABUSE, " stopped 8 weeks ago" noncompliance with meds, GERD HTN History of Present Illness History of Present Illness 03/25/2019 Patient was seen and examined in the ICU Labs including recent anion gap and blood glucose were reviewed d/w nursing BMP ordered Vitals/I&O Vitals/I&O: Vital Signs Date Time Temp Pulse Resp B/P (MAP) Pulse Ox O2 Delivery O2 Flow Rate FiO2 03/29/19 10:00 65 22 134/66 (88) 97 Nasal Cannula 2.0 03/29/19 07:00 98.1 98.1 I & O 03/28/19 03/28/19 03/29/19 15:00 23:00 07:00 Intake Total 1920 ml 1473.8 ml Output Total 200 ml 400 ml Balance 1720 ml 1073.8 ml Physical Exam General: Alert, Oriented X3, Cooperative, No acute distress Heart: Regular rate Abdomen: Normal bowel sounds, Soft Extremities: No cyanosis, No edema Labs Labs: Laboratory Tests Test 03/28/19 14:57 03/28/19 16:22 03/28/19 16:31 03/28/19 18:15 Glucose (Fingerstick) 545 mg/dL (70-99) White Blood Count 11.7 x10^3/uL (4.0-11.0) Red Blood Count 4.71 x10^6/uL (3.50-5.40) Hemoglobin 14.5 g/dL (12.0-15.5) Hematocrit 43.8 % (36.0-47.0) Mean Corpuscular Volume 93 fL (79-100) Mean Corpuscular Hemoglobin 31 pg (25-35) Mean Corpuscular Hemoglobin Concent 33 g/dL (31-37) Red Cell Distribution Width 15.2 % (11.5-14.5) Platelet Count 290 x10^3/uL (140-400) Neutrophils (%) (Auto) 75 % (31-73) Lymphocytes (%) (Auto) 18 % (24-48) Monocytes (%) (Auto) 6 % (0-9) Eosinophils (%) (Auto) 1 % (0-3) Basophils (%) (Auto) 1 % (0-3) Neutrophils # (Auto) 8.7 x10^3/uL (1.8-7.7) Lymphocytes # (Auto) 2.1 x10^3/uL (1.0-4.8) Monocytes # (Auto) 0.7 x10^3/uL (0.0-1.1) Eosinophils # (Auto) 0.1 x10^3/uL (0.0-0.7) Basophils # (Auto) 0.1 x10^3/uL (0.0-0.2) Prothrombin Time 11.2 SEC (11.7-14.0) Prothromb Time International Ratio 0.8 (0.8-1.1) Sodium Level 128 mmol/L (136-145) Potassium Level 4.3 mmol/L (3.5-5.1) Chloride Level 92 mmol/L (98-107) Carbon Dioxide Level 20 mmol/L (21-32) Anion Gap 16 (6-14) Blood Urea Nitrogen 16 mg/dL (7-20) Creatinine 1.8 mg/dL (0.6-1.0) Estimated GFR (Cockcroft-Gault) 35.6 BUN/Creatinine Ratio 9 (6-20) Glucose Level 605 mg/dL (70-99) Calcium Level 9.0 mg/dL (8.5-10.1) Phosphorus Level 5.9 mg/dL (2.6-4.7) Magnesium Level 1.9 mg/dL (1.8-2.4) Total Bilirubin 0.3 mg/dL (0.2-1.0) Aspartate Amino Transf (AST/SGOT) 12 U/L (15-37) Alanine Aminotransferase (ALT/SGPT) 19 U/L (14-59) Alkaline Phosphatase 110 U/L (46-116) Troponin I Quantitative < 0.017 ng/mL (0.000-0.055) Total Protein 7.1 g/dL (6.4-8.2) Albumin 3.5 g/dL (3.4-5.0) Albumin/Globulin Ratio 1.0 (1.0-1.7) Acetone Level Neg (NEG) Urine Collection Type Unknown Urine Color Yellow Urine Clarity Clear Urine pH 5.5 Urine Specific [place] >=1.030 Urine Protein Negative mg/dL (NEG-TRACE) Urine Glucose (UA) >=1000 mg/dL (NEG) Urine Ketones (Stick) Negative mg/dL (NEG) Urine Blood Negative (NEG) Urine Nitrite Negative (NEG) Urine Bilirubin Negative (NEG) Urine Urobilinogen Dipstick 0.2 mg/dL (0.2 mg/dL) Urine Leukocyte Esterase Negative (NEG) Urine RBC Occ /HPF (0-2) Urine WBC Occ /HPF (0-4) Urine Squamous Epithelial Cells Mod /LPF Urine Bacteria Few /HPF (0-FEW) Urine Yeast Present /HPF Stool Occult Blood Positive (NEG) Urine Opiates Screen Neg (NEG) Urine Methadone Screen Neg (NEG) Urine Barbiturates Neg (NEG) Urine Phencyclidine Screen Neg (NEG) Urine Amphetamine/Methamphetamine Neg (NEG) Urine Benzodiazepines Screen Neg (NEG) Urine Cocaine Screen Pos (NEG) Urine Cannabinoids Screen Neg (NEG) Urine Ethyl Alcohol Neg (NEG) Lactic Acid Level 1.8 mmol/L (0.4-2.0) Test 03/28/19 18:55 03/28/19 20:55 03/28/19 21:58 03/28/19 23:02 Glucose (Fingerstick) 406 mg/dL (70-99) 218 mg/dL (70-99) 154 mg/dL (70-99) 163 mg/dL (70-99) Test 03/29/19 00:01 03/29/19 00:55 03/29/19 01:58 03/29/19 03:05 Glucose (Fingerstick) 141 mg/dL (70-99) 109 mg/dL (70-99) 112 mg/dL (70-99) 147 mg/dL (70-99) Test 03/29/19 04:00 03/29/19 06:01 03/29/19 07:05 03/29/19 08:06 Glucose (Fingerstick) 135 mg/dL (70-99) 140 mg/dL (70-99) 165 mg/dL (70-99) 129 mg/dL (70-99) Test 03/29/19 09:25 White Blood Count 11.7 x10^3/uL (4.0-11.0) Red Blood Count 4.17 x10^6/uL (3.50-5.40) Hemoglobin 12.7 g/dL (12.0-15.5) Hematocrit 39.1 % (36.0-47.0) Mean Corpuscular Volume 94 fL (79-100) Mean Corpuscular Hemoglobin 31 pg (25-35) Mean Corpuscular Hemoglobin Concent 33 g/dL (31-37) Red Cell Distribution Width 15.5 % (11.5-14.5) Platelet Count 247 x10^3/uL (140-400) Neutrophils (%) (Auto) 62 % (31-73) Lymphocytes (%) (Auto) 31 % (24-48) Monocytes (%) (Auto) 6 % (0-9) Eosinophils (%) (Auto) 1 % (0-3) Basophils (%) (Auto) 0 % (0-3) Neutrophils # (Auto) 7.3 x10^3/uL (1.8-7.7) Lymphocytes # (Auto) 3.6 x10^3/uL (1.0-4.8) Monocytes # (Auto) 0.7 x10^3/uL (0.0-1.1) Eosinophils # (Auto) 0.1 x10^3/uL (0.0-0.7) Basophils # (Auto) 0.0 x10^3/uL (0.0-0.2) Sodium Level 139 mmol/L (136-145) Potassium Level 3.5 mmol/L (3.5-5.1) Chloride Level 103 mmol/L (98-107) Carbon Dioxide Level 22 mmol/L (21-32) Anion Gap 14 (6-14) Blood Urea Nitrogen 11 mg/dL (7-20) Creatinine 1.0 mg/dL (0.6-1.0) Estimated GFR (Cockcroft-Gault) 70.2 Glucose Level 253 mg/dL (70-99) Calcium Level 8.4 mg/dL (8.5-10.1) Review of Systems Review of Systems: GI: admits to hunger, denies n/v/d Neuro: denies neuropathy or loss of sensation Assessment and Plan Assessmemt and Plan Assessment: hyperosmolar not ketotic state DM2 obesity, MORBID BMI 41 cocaine abuse CHRONIC AND RECENT tobacco use disorder REMOTE ALCOHOL ABUSE, " stopped 8 weeks ago" noncompliance with meds, GERD HTN Plan: Plan to transfer to medical floor Follow labs Discussed importance of medication compliance Encouraged outpatient f/u after D/C D/W patient and RN Full code DVT Prophylaxis Comment Review of Relevant I have reviewed the following items kirti (where applicable) has been applied. Medications: Current Medications Medications (Trade) Dose Ordered Sig/Brooks Route PRN Reason Start Time Stop Time Status Last Admin Dose Admin Sodium Chloride 1,000 ml @ 1,000 mls/hr 1X ONCE IV 03/28/19 16:15 03/28/19 17:14 DC 03/28/19 16:42 Ondansetron HCl (Zofran) 4 mg 1X ONCE IVP 03/28/19 16:15 03/28/19 16:16 DC 03/28/19 16:41 Sodium Chloride 1,000 ml @ 1,000 mls/hr Q1H IV 03/28/19 18:10 03/28/19 19:09 DC 03/28/19 18:40 Insulin Human Regular 100 unit/ Sodium Chloride 101 ml @ 0 mls/hr CONT PRN PRN IV PER PROTOCOL 03/28/19 19:45 03/28/19 19:56 Sodium Chloride 1,000 ml @ 100 mls/hr Q10H IV 03/28/19 20:03 03/29/19 07:23 Albuterol/ Ipratropium (Duoneb) 3 ml Q4HRS NEB 03/28/19 20:15 03/28/19 21:52 DC 03/28/19 20:37 Lorazepam (Ativan) 0.5 mg PRN Q4HRS PRN PO ANXIETY / AGITATION 03/28/19 20:15 03/28/19 22:10 Enoxaparin Sodium (Lovenox 40mg Syringe) 40 mg Q24H SQ 03/28/19 21:00 03/28/19 21:22 Albuterol/ Ipratropium (Duoneb) 3 ml RTQID NEB 03/29/19 08:00 03/29/19 08:13 CARINE SOUZA III DO Mar 29, 2019 12:00
[2019-03-29] MEDS: metFORMIN 500 MG TABLET PO SCH ×2 (13:07→17:33)
[2019-03-29] MEDS: ACETAMINOPHEN 325 MG TABLET. PO PRN ×2 (13:07→20:28)
[2019-03-29] MEDS: LISINOPRIL 20 MG TABLET PO SCH (13:08)
[2019-03-29 13:33] LABS: PLT ESTIMATE ADEQUATE (ADEQUATE)
--- NOTE | 2019-03-29 15:05 | NUR ---
This RN received report from JANETT Vicente in ICU at 1345. Pt arrived on unit by wheelchair at approx 1445. Pt in bed watching tv, oriented to room and call light. Will continue to monitor.
[2019-03-29] MEDS: NON FORMULARY ITEM (Empagliflozin (Jardiance) 10 MG) PO SCH (16:30)
[2019-03-29] MEDS: ENOXAPARIN 40 MG/0.4 ML SYRINGE. SQ SCH (20:31)
[2019-03-29] MEDS ORDERED: ZOLPIDEM 5 MG TABLET. PO PRN (21:15)
[2019-03-29] MEDS ORDERED: diphenhydrAMINE HCL 25 MG CAPSULE PO PRN (21:15)
[2019-03-30] MEDS: IV NORMAL SALINE 1000ML BAG 1,000 ML IV SCH ×2 (02:03→11:55)
[2019-03-30 03:00] VITALS: BP 126/68
[2019-03-30] MEDS: NON FORMULARY ITEM (Empagliflozin (Jardiance) 10 MG) PO SCH (07:30)
[2019-03-30 07:46] VITALS: BP 144/74
[2019-03-30] MEDS: IPRATRPIUM/ALBUTEROL 0.5/2.5MG 3 ML NEBU. NEB SCH ×3 (08:00→16:41)
[2019-03-30] MEDS: metFORMIN 500 MG TABLET PO SCH ×2 (09:05→16:39)
[2019-03-30] MEDS: LISINOPRIL 20 MG TABLET PO SCH (09:05)
[2019-03-30] MEDS: INSULIN LISPRO 300 UNITS/3 ML VIAL. SQ SCH ×3 (09:09→16:44)
[2019-03-30] MEDS: ACETAMINOPHEN 325 MG TABLET. PO PRN (09:10)
[2019-03-30 11:50] VITALS: BP 152/78
--- NOTE | 2019-03-30 12:57 | NUR ---
SW following. Discussed with RN. Pt is from home, cocaine use. PAT team consulted for drug use/abuse. SW will continue to follow.
[2019-03-30 15:44] VITALS: BP 142/70
[2019-03-30] MEDS ORDERED: INSU100I27 SQ (16:22)
[2019-03-30] MEDS ORDERED: PSYL0.5215 PO (16:23)
--- NOTE | 2019-03-30 16:33 | PDOC ---
PROGRESS NOTES Chief Complaint Chief Complaint Hyperosmolar not ketotic state DM2 obesity, MORBID BMI 41 cocaine abuse CHRONIC AND RECENT tobacco use disorder REMOTE ALCOHOL ABUSE, " stopped 8 weeks ago" noncompliance with meds, GERD HTN History of Present Illness History of Present Illness Ms Song is a 54 year old female w/ PMHx DM2, GERD, HTN who presents with fatigue, hyperglycemia. Patient reports she has been checking her blood sugar at home, finding it to be 600 recently. States she had been seen in her primary care 3 days earlier, was told within the emergency room, she did not at that time. States she just feels really dry and thirsty, had been drinking a lot of water yesterday trying to help her symptoms, however they did not help. States she has not been on insulin, however she has been on Jardiance and metformin. Denies any shortness of breath, does report chronic cough. States she just feels weak. Patient reports she does try to take her diabetic medications, however is not always taking Does admit to smoking crack cocaine for the last couple days and drinking juice and syrup. Back on insulin, feeling improved. Requiring almost 20 units of insulin throughout the day. 03/25/2019 Patient was seen and examined in the ICU Labs including recent anion gap and blood glucose were reviewed d/w nursing BMP ordered Vitals Vitals Vital Signs Date Time Temp Pulse Resp B/P (MAP) Pulse Ox O2 Delivery O2 Flow Rate FiO2 03/30/19 15:44 98.0 80 18 142/70 (94) 95 Room Air 98.0 03/29/19 11:58 1.0 Physical Exam General: Alert, Oriented X3, Cooperative, No acute distress Heart: Regular rate Abdomen: Normal bowel sounds, Soft Extremities: No cyanosis, No edema Labs LABS Laboratory Tests Test 03/29/19 16:51 03/29/19 21:32 03/30/19 07:59 03/30/19 11:21 Glucose (Fingerstick) 222 mg/dL (70-99) 263 mg/dL (70-99) 314 mg/dL (70-99) 181 mg/dL (70-99) Assessment and Plan Assessmemt and Plan Problems Medical Problems: (1) Nonketotic hyperglycinemia Status: Acute Comment Review of Relevant I have reviewed the following items kirti (where applicable) has been applied. Labs Laboratory Tests Test 03/28/19 16:31 03/28/19 18:15 03/28/19 18:55 03/28/19 20:55 Urine Collection Type Unknown Urine Color Yellow Urine Clarity Clear Urine pH 5.5 Urine Specific Wheeler >=1.030 Urine Protein Negative mg/dL (NEG-TRACE) Urine Glucose (UA) >=1000 mg/dL (NEG) Urine Ketones (Stick) Negative mg/dL (NEG) Urine Blood Negative (NEG) Urine Nitrite Negative (NEG) Urine Bilirubin Negative (NEG) Urine Urobilinogen Dipstick 0.2 mg/dL (0.2 mg/dL) Urine Leukocyte Esterase Negative (NEG) Urine RBC Occ /HPF (0-2) Urine WBC Occ /HPF (0-4) Urine Squamous Epithelial Cells Mod /LPF Urine Bacteria Few /HPF (0-FEW) Urine Yeast Present /HPF Stool Occult Blood Positive (NEG) Urine Opiates Screen Neg (NEG) Urine Methadone Screen Neg (NEG) Urine Barbiturates Neg (NEG) Urine Phencyclidine Screen Neg (NEG) Urine Amphetamine/Methamphetamine Neg (NEG) Urine Benzodiazepines Screen Neg (NEG) Urine Cocaine Screen Pos (NEG) Urine Cannabinoids Screen Neg (NEG) Urine Ethyl Alcohol Neg (NEG) Lactic Acid Level 1.8 mmol/L (0.4-2.0) Glucose (Fingerstick) 406 mg/dL (70-99) 218 mg/dL (70-99) Test 03/28/19 21:58 03/28/19 23:02 03/29/19 00:01 03/29/19 00:55 Glucose (Fingerstick) 154 mg/dL (70-99) 163 mg/dL (70-99) 141 mg/dL (70-99) 109 mg/dL (70-99) Test 03/29/19 01:58 03/29/19 03:05 03/29/19 04:00 03/29/19 06:01 Glucose (Fingerstick) 112 mg/dL (70-99) 147 mg/dL (70-99) 135 mg/dL (70-99) 140 mg/dL (70-99) Test 03/29/19 07:05 03/29/19 08:06 03/29/19 09:25 03/29/19 14:10 Glucose (Fingerstick) 165 mg/dL (70-99) 129 mg/dL (70-99) 325 mg/dL (70-99) White Blood Count 11.7 x10^3/uL (4.0-11.0) Red Blood Count 4.17 x10^6/uL (3.50-5.40) Hemoglobin 12.7 g/dL (12.0-15.5) Hematocrit 39.1 % (36.0-47.0) Mean Corpuscular Volume 94 fL (79-100) Mean Corpuscular Hemoglobin 31 pg (25-35) Mean Corpuscular Hemoglobin Concent 33 g/dL (31-37) Red Cell Distribution Width 15.5 % (11.5-14.5) Platelet Count 247 x10^3/uL (140-400) Neutrophils (%) (Auto) 62 % (31-73) Lymphocytes (%) (Auto) 31 % (24-48) Monocytes (%) (Auto) 6 % (0-9) Eosinophils (%) (Auto) 1 % (0-3) Basophils (%) (Auto) 0 % (0-3) Neutrophils # (Auto) 7.3 x10^3/uL (1.8-7.7) Lymphocytes # (Auto) 3.6 x10^3/uL (1.0-4.8) Monocytes # (Auto) 0.7 x10^3/uL (0.0-1.1) Eosinophils # (Auto) 0.1 x10^3/uL (0.0-0.7) Basophils # (Auto) 0.0 x10^3/uL (0.0-0.2) Platelet Estimate Adequate (ADEQUATE) Large Platelets Mod Sodium Level 139 mmol/L (136-145) Potassium Level 3.5 mmol/L (3.5-5.1) Chloride Level 103 mmol/L (98-107) Carbon Dioxide Level 22 mmol/L (21-32) Anion Gap 14 (6-14) Blood Urea Nitrogen 11 mg/dL (7-20) Creatinine 1.0 mg/dL (0.6-1.0) Estimated GFR (Cockcroft-Gault) 70.2 Glucose Level 253 mg/dL (70-99) Calcium Level 8.4 mg/dL (8.5-10.1) Test 03/29/19 16:51 03/29/19 21:32 03/30/19 07:59 03/30/19 11:21 Glucose (Fingerstick) 222 mg/dL (70-99) 263 mg/dL (70-99) 314 mg/dL (70-99) 181 mg/dL (70-99) Laboratory Tests Test 03/29/19 16:51 03/29/19 21:32 03/30/19 07:59 03/30/19 11:21 Glucose (Fingerstick) 222 mg/dL (70-99) 263 mg/dL (70-99) 314 mg/dL (70-99) 181 mg/dL (70-99) Microbiology 03/28/19 Blood Culture - Preliminary, Resulted NO GROWTH AFTER 1 DAY Medications Current Medications Sodium Chloride 1,000 ml @ 1,000 mls/hr 1X ONCE IV Last administered on 03/28/19at 16:42; Start 03/28/19 at 16:15; Stop 03/28/19 at 17:14; Status DC Ondansetron HCl (Zofran) 4 mg 1X ONCE IVP Last administered on 03/28/19at 16:41; Start 03/28/19 at 16:15; Stop 03/28/19 at 16:16; Status DC Sodium Chloride 1,000 ml @ 1,000 mls/hr Q1H IV Last administered on 03/28/19at 18:40; Start 03/28/19 at 18:10; Stop 03/28/19 at 19:09; Status DC Insulin Human Regular 100 unit/ Sodium Chloride 101 ml @ 9.797 mls/ hr CONT PRN PRN IV PER PROTOCOL; Start 03/28/19 at 18:15; Stop 03/28/19 at 19:48; Status DC Potassium Chloride/Water 100 ml @ 100 mls/hr PRN Q1HR PRN IV SEE COMMENTS; Start 03/28/19 at 18:15 Potassium Chloride/Water 100 ml @ 100 mls/hr PRN Q1HR PRN IV SEE COMMENTS; Start 03/28/19 at 18:15 Potassium Chloride/Water 100 ml @ 100 mls/hr PRN Q1HR PRN IV SEE COMMENTS; Start 03/28/19 at 18:15 Insulin Human Regular 100 ml @ 0 mls/hr 1X ONCE IV ; Start 03/28/19 at 18:15; Stop 03/28/19 at 19:48; Status DC Insulin Human Regular 100 ml @ 0 mls/hr 1X ONCE IV ; Start 03/28/19 at 19:30; Stop 03/28/19 at 19:31; Status Cancel Insulin Human Regular 100 unit/ Sodium Chloride 101 ml @ 9.797 mls/ hr CONT PRN IV SEE I/O RECORD; Start 03/28/19 at 19:30; Status Cancel Insulin Human Regular 100 unit/ Sodium Chloride 101 ml @ 0 mls/hr CONT PRN PRN IV PER PROTOCOL Last administered on 03/28/19at 19:56; Start 03/28/19 at 19:45 Sodium Chloride (Normal Saline Flush) 3 ml QSHIFT PRN IV AFTER MEDS AND BLOOD DRAWS; Start 03/28/19 at 20:15 Sodium Chloride 1,000 ml @ 100 mls/hr Q10H IV Last administered on 03/29/19at 07:23; Start 03/28/19 at 20:03 Ondansetron HCl (Zofran) 4 mg PRN Q4HRS PRN IV NAUSEA/VOMITING; Start 03/28/19 at 20:15 Acetaminophen (Tylenol) 650 mg PRN Q4HRS PRN PO TEMP OVER 100.4F OR MILD PAIN Last administered on 03/30/19at 09:10; Start 03/28/19 at 20:15 Clonidine HCl (Catapres) 0.1 mg PRN Q6HRS PRN PO SBP>160 OR DBP>90; Start 03/28 at 20:15 Docusate Sodium (Colace) 100 mg PRN BID PRN PO CONSTIPATION; Start 03/28/19 at 20:15 Albuterol/ Ipratropium (Duoneb) 3 ml Q4HRS NEB Last administered on 03/28/19at 20:37; Start 03/28/19 at 20:15; Stop 03/28/19 at 21:52; Status DC Guaifenesin (Robitussin) 200 mg PRN Q4HRS PRN PO COUGH Last administered on 03/30/19at 09:10; Start 03/28/19 at 20:15 Lorazepam (Ativan) 0.5 mg PRN Q4HRS PRN PO ANXIETY / AGITATION Last administered on 03/28/19at 22:10; Start 03/28/19 at 20:15 Enoxaparin Sodium (Lovenox 40mg Syringe) 40 mg Q24H SQ Last administered on 03/28/19at 21:22; Start 03/28/19 at 21:00 Albuterol/ Ipratropium (Duoneb) 3 ml RTQID NEB Last administered on 03/30/19at 11:40; Start 03/29/19 at 08:00 Insulin Human Lispro (HumaLOG) 0-7 UNITS TIDWMEALS SQ Last administered on 03/30/19at 12:13; Start 03/29/19 at 08:00 Dextrose (Dextrose 50%-Water Syringe) 12.5 gm PRN Q15MIN PRN IV SEE COMMENTS; Start 03/29/19 at 08:30 Lisinopril (Prinivil) 20 mg DAILY PO Last administered on 03/30/19at 09:05; Start 03/29/19 at 13:00 Non-Formulary Medication (Empagliflozin (Jardiance)) 10 mg BIDBFRMEAL PO ; Start 03/29/19 at 16:30; Stop 03/30/19 at 14:43; Status DC Metformin HCl (Glucophage) 1,000 mg BIDWMEALS PO Last administered on 03/30/19at 09:05; Start 03/29/19 at 12:00 Diphenhydramine HCl (Benadryl) 25 mg PRN QHS PRN PO INSOMNIA 1ST CHOICE; Start 03/29/19 at 21:15 Zolpidem Tartrate (Ambien) 5 mg PRN QHS PRN PO INSOMNIA, MAY REPEAT IN 1HR Last administered on 03/29/19at 22:17; Start 03/29/19 at 21:15 Active Scripts Active Metamucil (Psyllium Husk) 0.52 Gm Capsule 1 Cap PO DAILY 30 Days Levemir Flextouch (Insulin Detemir) 100 Unit/1 Ml Insuln.pen 20 Unit SQ QHS 30 Days Proair Hfa Inhaler (Albuterol Sulfate) 8.5 Gm Hfa.aer.ad 2 Puff INH PRN Q6HRS PRN Reported Jardiance (Empagliflozin) 10 Mg Tablet 10 Mg PO BIDBFRMEAL Metformin Hcl 1,000 Mg Tablet 1,000 Mg PO BIDWMEALS Lisinopril 20 Mg Tablet 1 Tab PO DAILY Vitals/I & O Vital Sign - Last 24 Hours 03/29/19 03/29/19 03/29/19 03/29/19 16:38 19:00 19:52 20:00 Temp 97.8 97.8 Pulse 84 Resp 18 B/P (MAP) 108/58 (75) Pulse Ox 94 96 O2 Delivery Room Air Room Air Room Air Room Air 03/29/19 03/30/19 03/30/19 03/30/19 23:00 03:00 07:46 09:05 Temp 97.8 98.0 98.1 97.8 98.0 98.1 Pulse 86 76 80 80 Resp 18 18 18 B/P (MAP) 109/58 (75) 126/68 (87) 144/74 (97) 144/74 Pulse Ox 95 92 93 O2 Delivery Room Air Room Air Room Air 03/30/19 03/30/19 03/30/19 11:40 11:50 15:44 Temp 98.0 98.0 98.0 98.0 Pulse 84 80 Resp 18 18 B/P (MAP) 152/78 (102) 142/70 (94) Pulse Ox 94 95 95 O2 Delivery Room Air Room Air Room Air Intake and Output 03/29/19 03/29/19 03/30/19 15:00 23:00 07:00 Intake Total 840 ml 600 ml 500 ml Output Total 300 ml Balance 540 ml 600 ml 500 ml GODFREY DICKEY MD Mar 30, 2019 16:33
--- NOTE | 2019-03-30 16:34 | PDOC3 ---
Discharge Summary Visit Information Date of Admission: Mar 28, 2019 Date of Discharge: Mar 30, 2019 Admitting Diagnosis: Hyperglycemia Final Diagnosis Problems Medical Problems: (1) Nonketotic hyperglycinemia Status: Acute Brief Hospital Course Allergies Allergies Coded Allergies Type Severity Reaction Last Updated Verified No Known Drug Allergies 08/12/13 No Vital Signs Vital Signs Date Time Temp Pulse Resp B/P (MAP) Pulse Ox O2 Delivery O2 Flow Rate FiO2 03/30/19 15:44 98.0 80 18 142/70 (94) 95 Room Air 98.0 03/29/19 11:58 1.0 Lab Results Laboratory Tests Test 03/28/19 18:15 03/28/19 18:55 03/28/19 20:55 03/28/19 21:58 Lactic Acid Level 1.8 mmol/L (0.4-2.0) Glucose (Fingerstick) 406 mg/dL (70-99) 218 mg/dL (70-99) 154 mg/dL (70-99) Test 03/28/19 23:02 03/29/19 00:01 03/29/19 00:55 03/29/19 01:58 Glucose (Fingerstick) 163 mg/dL (70-99) 141 mg/dL (70-99) 109 mg/dL (70-99) 112 mg/dL (70-99) Test 03/29/19 03:05 03/29/19 04:00 03/29/19 06:01 03/29/19 07:05 Glucose (Fingerstick) 147 mg/dL (70-99) 135 mg/dL (70-99) 140 mg/dL (70-99) 165 mg/dL (70-99) Test 03/29/19 08:06 03/29/19 09:25 03/29/19 14:10 03/29/19 16:51 Glucose (Fingerstick) 129 mg/dL (70-99) 325 mg/dL (70-99) 222 mg/dL (70-99) White Blood Count 11.7 x10^3/uL (4.0-11.0) Red Blood Count 4.17 x10^6/uL (3.50-5.40) Hemoglobin 12.7 g/dL (12.0-15.5) Hematocrit 39.1 % (36.0-47.0) Mean Corpuscular Volume 94 fL (79-100) Mean Corpuscular Hemoglobin 31 pg (25-35) Mean Corpuscular Hemoglobin Concent 33 g/dL (31-37) Red Cell Distribution Width 15.5 % (11.5-14.5) Platelet Count 247 x10^3/uL (140-400) Neutrophils (%) (Auto) 62 % (31-73) Lymphocytes (%) (Auto) 31 % (24-48) Monocytes (%) (Auto) 6 % (0-9) Eosinophils (%) (Auto) 1 % (0-3) Basophils (%) (Auto) 0 % (0-3) Neutrophils # (Auto) 7.3 x10^3/uL (1.8-7.7) Lymphocytes # (Auto) 3.6 x10^3/uL (1.0-4.8) Monocytes # (Auto) 0.7 x10^3/uL (0.0-1.1) Eosinophils # (Auto) 0.1 x10^3/uL (0.0-0.7) Basophils # (Auto) 0.0 x10^3/uL (0.0-0.2) Platelet Estimate Adequate (ADEQUATE) Large Platelets Mod Sodium Level 139 mmol/L (136-145) Potassium Level 3.5 mmol/L (3.5-5.1) Chloride Level 103 mmol/L (98-107) Carbon Dioxide Level 22 mmol/L (21-32) Anion Gap 14 (6-14) Blood Urea Nitrogen 11 mg/dL (7-20) Creatinine 1.0 mg/dL (0.6-1.0) Estimated GFR (Cockcroft-Gault) 70.2 Glucose Level 253 mg/dL (70-99) Calcium Level 8.4 mg/dL (8.5-10.1) Test 03/29/19 21:32 03/30/19 07:59 03/30/19 11:21 Glucose (Fingerstick) 263 mg/dL (70-99) 314 mg/dL (70-99) 181 mg/dL (70-99) Laboratory Tests Test 03/29/19 16:51 03/29/19 21:32 03/30/19 07:59 03/30/19 11:21 Glucose (Fingerstick) 222 mg/dL (70-99) 263 mg/dL (70-99) 314 mg/dL (70-99) 181 mg/dL (70-99) Brief Hospital Course Ms Song is a 54 year old female w/ PMHx DM2, GERD, HTN who presents with fatigue, hyperglycemia. Patient reports she has been checking her blood sugar at home, finding it to be 600 recently. States she had been seen in her primary care 3 days earlier, was told within the emergency room, she did not at that time. States she just feels really dry and thirsty, had been drinking a lot of water yesterday trying to help her symptoms, however they did not help. States she has not been on insulin, however she has been on Jardiance and metformin. Denies any shortness of breath, does report chronic cough. States she just feels weak. Patient reports she does try to take her diabetic medications, however is not always taking Does admit to smoking crack cocaine for the last couple days and drinking juice and syrup. Back on insulin, feeling improved. Requiring almost 20 units of insulin throughout the day. Problem list: Hyperosmolar not ketotic state DM2 obesity, MORBID BMI 41 cocaine abuse CHRONIC AND RECENT tobacco use disorder REMOTE ALCOHOL ABUSE, " stopped 8 weeks ago" noncompliance with meds, GERD HTN Greater than 30 minutes spent on d/c Discharge Information Condition at Discharge: Improved Follow Up: Weeks (1) Disposition/Orders: D/C to Home Scheduled Empagliflozin (Jardiance) 10 Mg Tablet, 10 MG PO BIDBFRMEAL for DIABETES, (Reported) Entered as Reported by: LUIZ NICKERSON RN on 03/28/192049 Last Action: Converted on 03/29/191154 by CARINE SOUZA Insulin Detemir (Levemir Flextouch) 100 Unit/1 Ml Insuln.pen, 20 UNIT SQ QHS for dm2 for 30 Days, #1 Ref 2 Prescribed by: GODFREY DICKEY MD on 03/30/19 1622 Lisinopril (Lisinopril) 20 Mg Tablet, 1 TAB PO DAILY for htn, #30 Ref 5 (Reported) Entered as Reported by: LUIZ NICKERSON RN on 03/28/192049 Last Action: Continued on 03/29/191154 by CARINE SOUZA Metformin Hcl (Metformin Hcl) 1,000 Mg Tablet, 1,000 MG PO BIDWMEALS for DIABETES, (Reported) Entered as Reported by: LUIZ NICKERSON RN on 03/28/192049 Last Action: Converted on 03/29/19 1155 by NIAL CASTLE Psyllium Husk (Metamucil) 0.52 Gm Capsule, 1 CAP PO DAILY for Constipation/Diverticulosis for 30 Days, #30 Ref 0 Prescribed by: GODFREY DICKEY MD on 03/30/19 1623 Scheduled PRN Albuterol Sulfate (Proair Hfa Inhaler) 8.5 Gm Hfa.aer.ad, 2 PUFF INH PRN Q6HRS PRN for SHORTNESS OF BREATH, #1 Ref 0 Prescribed by: LILIANE SMITH on 05/26/17 0849 Last Action: Reviewed on 03/28/192043 by JANETT LOCK CHRISTOPHER S MD Mar 30, 2019 16:34
--- NOTE | 2019-03-30 17:48 | NUR ---
Discharge Note: ANALIA LITTLE Discharge instructions and discharge home medications reviewed with Patient and a copy given. All questions have been answered and understanding verbalized. The following instructions and handouts were given: Hyperglycemia, Diverticulosis Discontinued lines and drains: Peripheral IV intact. Patient discharged to Home or Self Care with Self via Ambulated
== END 2019-03-30 17:49 | disposition home or self-care (01) | DRG 638 ==
LOC: ER 14:23 → 1 WEST ICU 18:00 → 5 SOUTH 03-29 14:25
PROVIDERS: ADMIT Family Medicine; ATTEND Family Medicine
DX: E11.00 Type 2 diabetes mellitus with hyperosmolarity without nonketotic hyperglycemic-hyperosmolar coma (NKHHC) (principal); Z68.41 Body mass index [BMI] 40.0-44.9, adult; E72.51 Non-ketotic hyperglycinemia; K21.9 Gastro-esophageal reflux disease without esophagitis; I10 Essential (primary) hypertension; F17.210 Nicotine dependence, cigarettes, uncomplicated; E78.5 Hyperlipidemia, unspecified; F14.10 Cocaine abuse, uncomplicated; E66.01 Morbid (severe) obesity due to excess calories; Z91.14 Patient's other noncompliance with medication regimen; Z82.49 Family history of ischemic heart disease and other diseases of the circulatory system
CPT/HCPCS: 36415; 71045; 80048; 80053; 80307; 81001; 82010; 82274; 82962; 83605; 83735; 84100; 84484; 85025; 85610; 87040; 93005; 94640; 94760; 96360; 99285; J1650; J1815; J2405; J7030; J7620; G0378

== ENCOUNTER 2019-04-20 09:31 | Emergency (ER) | payer SELFPAY ==
[~2019-04-20] VITALS: Ht 165.1 cm; Wt 100.0 kg
[~2019-04-20 09:31] MED LIST changes: +EMPA10TA PO; +INSU100I27 SQ; +LISI-334 PO; +METF10007 PO; +PSYL0.5215 PO
[2019-04-20 10:26] VITALS: BP 193/93
[2019-04-20] MEDS ORDERED: KETOROLAC 30 MG/ML VIAL. IM ONE (10:30)
--- NOTE | 2019-04-20 10:57 | RAD ---
Examination: FOOT RIGHT 3V History: Foot pain for last 6 days plantar aspect Comparison/Correlation: None Findings: 3 images of the right foot were obtained. Joint spaces are unremarkable for the patient's age. Mild degenerative narrowing of fourth and fifth digit phalangeal joints noted. Small calcaneal spur is present. Impression: No suspicious process. Electronically signed by: Octavio Rick MD (04/20/2019 10:54 AM) [id number]
--- NOTE | 2019-04-20 11:11 | RAD ---
Examination: VENOUS LOWER EXTREMITY RIGHT History: Swelling, pain Comparison/Correlation: None FINDINGS: Right lower extremity duplex venous ultrasound exam was performed. Grayscale, color Doppler, and spectral Doppler imaging was performed. Compression and augmentation was performed. The right common femoral vein, superficial femoral vein, popliteal vein, and saphenofemoral junction are normal with no evidence of deep venous thrombus. Visualized right calf veins are unremarkable. Normal compressibility and augmentation is evident. IMPRESSION: Normal right lower extremity duplex ultrasound exam. No evidence of deep venous thrombus involving the right lower extremity. Electronically signed by: Octavio Rick MD (04/20/2019 11:08 AM) [id number]
[2019-04-20] MEDS ORDERED: NAPR-695 PO (11:14)
[2019-04-20] MEDS ORDERED: HYDR-3164 PO (11:14)
--- NOTE | 2019-04-20 11:14 | PHYS DOC ---
Past Medical History Past Medical History: Diabetes-Type II, GERD, Hypertension Past Surgical History: Other Additional Past Surgical Histo: L KNEE Smoking Status: Current Every Day Smoker Alcohol Use: Occasionally Drug Use: Cocaine, Marijuana Adult General Chief Complaint Chief Complaint: LOWER EXT PAIN HPI HPI 54-year-old female presents with report of right lower foot burning pain for the past 3 days. Patient reports she is able to bear weight but it is painful with range of motion. Denies numbness or tingling. Denies known trauma. Denies fever or chills. Denies rash. Review of Systems Review of Systems Constitutional: Denies fever or chills Eyes: Denies redness or eye pain HENT: Denies nasal congestion or sore throat Respiratory: Denies cough or shortness of breath Cardiovascular: Denies chest pain or palpitations GI: Denies abdominal pain, nausea, or vomiting : Denies dysuria or hematuria Musculoskeletal: Denies back pain; reports right foot burning and pain Integument: Denies rash or skin lesions Neurologic: Denies headache, focal weakness or sensory changes Complete systems were reviewed and found to be within normal limits, except as documented in this note. Current Medications Current Medications Current Medications Medications (Trade) Dose Ordered Sig/Brooks Start Time Stop Time Status Last Admin Dose Admin Ketorolac Tromethamine (Toradol 30mg Vial) 30 mg 1X ONCE 04/20/19 10:30 04/20/19 10:31 DC 04/20/19 11:12 30 MG Allergies Allergies Allergies Coded Allergies Type Severity Reaction Last Updated Verified No Known Drug Allergies 08/12/13 No Physical Exam Physical Exam Constitutional: Well developed, well nourished, no acute distress, non-toxic appearance HENT: Normocephalic, atraumatic, oropharynx moist Eyes: Conjunctiva normal, no discharge Neck: Normal range of motion, no tenderness, supple Cardiovascular: Right DP and PT +2, CR < 3 sec Lungs & Thorax: No respiratory distress, atraumatic Skin: Warm, dry, no erythema, no rash Back: No tenderness, no CVA tenderness Extremities: Right lower foot tenderness on palpation and ROM- worse on plantar aspect of the calcaneous, no ecchymosis or erythema, no edema Neurologic: Alert and oriented X 3, normal motor function, normal sensory function, no focal deficits noted Psychologic: Affect normal, judgment normal Current Patient Data Vital Signs Vital Signs Date Time Temp Pulse Resp B/P (MAP) Pulse Ox O2 Delivery O2 Flow Rate FiO2 04/20/19 10:26 97.9 80 20 193/93 (126) 96 Room Air 97.9 EKG EKG [] Radiology/Procedures Radiology/Procedures PROCEDURE: FOOT RIGHT 3V Examination: FOOT RIGHT 3V History: Foot pain for last 6 days plantar aspect Comparison/Correlation: None Findings: 3 images of the right foot were obtained. Joint spaces are unremarkable for the patient's age. Mild degenerative narrowing of fourth and fifth digit phalangeal joints noted. Small calcaneal spur is present. Impression: No suspicious process. Electronically signed by: Octaivo Rick MD (04/20/2019 10:54 AM) [id number] Course & Med Decision Making Course & Med Decision Making Pertinent Imaging studies reviewed. (See chart for details) Patient presents with right lower extremity pain and discomfort primarily upon palpation of plantar aspect of calcaneus. Patient denies trauma. Reports sensation as a "burning ". Pulses intact. X-ray obtained without acute fracture, dislocation, or foreign body. Venous Doppler negative. Pain addressed. Symptoms more likely secondary to neuropathy. Patient stable for discharge with outpatient follow-up with PCP. Discussed findings and plan with patient, who acknowledges understanding and agreement. Dragon Disclaimer Dragon Disclaimer This electronic medical record was generated, in whole or in part, using a voice recognition dictation system. Departure Departure Impression: Primary Impression: Pain of right leg Additional Impression: Neuropathy Disposition: 01 HOME, SELF-CARE Condition: STABLE Referrals: NO PCP (PCP) Patient Instructions: Pain, Neuropathic Scripts Hydrocodone/Apap 5-325 (NORCO 5-325 TABLET) 1 Each Tablet 0.5-1 TAB PO PRN Q6HRS PRN for PAIN, #10 TAB 0 Refills Prov: JANINA CARRERO DO 04/20/19 Naproxen (NAPROXEN) 375 Mg Tablet 375 MG PO TID PRN PRN for PAIN, #20 TAB Prov: JANINA CARRERO DO 04/20/19 Problem Qualifiers JANINA CARRERO DO Apr 20, 2019 11:14
== END 2019-04-20 11:32 | disposition home or self-care (01) ==
LOC: ER 09:31
DX: M79.671 Pain in right foot (principal); E11.40 Type 2 diabetes mellitus with diabetic neuropathy, unspecified; K21.9 Gastro-esophageal reflux disease without esophagitis; I10 Essential (primary) hypertension; F14.90 Cocaine use, unspecified, uncomplicated; F12.90 Cannabis use, unspecified, uncomplicated; F17.200 Nicotine dependence, unspecified, uncomplicated; Z98.890 Other specified postprocedural states
CPT/HCPCS: 73630; 93971; 96372; 99284; J1885

== ENCOUNTER 2019-04-25 14:45 | Emergency (ER) | payer SELFPAY ==
[~2019-04-25] VITALS: Ht 165.1 cm; Wt 100.0 kg
[~2019-04-25 14:45] MED LIST changes: +HYDR-3164 PO; +NAPR-695 PO
[2019-04-25 15:59] LABS: BASO # 0.1 x10^3/uL (0.0-0.2); BASO % 1 % (0-3); EOS # 0.2 x10^3/uL (0.0-0.7); EOS % 1 % (0-3); HEMOGLOBIN 11.5 g/dL (12.0-15.5); LYMPH % 19 % (24-48); MEAN CORPUSCULAR HEMOGLOBIN 30 pg (25-35); MEAN CORPUSCULAR HGB CONC 33 g/dL (31-37); MEAN CORPUSCULAR VOLUME 92 fL (79-100); MONO # 0.8 x10^3/uL (0.0-1.1); MONO % 5 % (0-9); NEUT # 11.6 x10^3/uL (1.8-7.7); NEUT % 74 % (31-73); PLATELET COUNT 396 x10^3/uL (140-400); RED BLOOD COUNT 3.79 x10^6/uL (3.50-5.40); RED CELL DISTRIBUTION WIDTH 15.4 % (11.5-14.5); WHITE BLOOD COUNT 15.7 x10^3/uL (4.0-11.0)
[2019-04-25 16:04] LABS: CALCIUM 8.4 mg/dL (8.5-10.1); CREATININE 1.1 mg/dL (0.6-1.0); GFR 62.9; POTASSIUM 3.4 mmol/L (3.5-5.1)
[2019-04-25 16:08] LABS: URIC ACID 3.4 mg/dL (2.6-6.0)
[2019-04-25] MEDS ORDERED: NAPR-514 PO (16:40)
[2019-04-25] MEDS ORDERED: HYDR-2761 PO (16:40)
[2019-04-25] MEDS ORDERED: CEPH-264 PO (16:40)
[2019-04-25] MEDS ORDERED: SULF1TAB24 PO (16:40)
--- NOTE | 2019-04-25 16:41 | PHYS DOC ---
Past Medical History Past Medical History: Diabetes-Type II, GERD, Hypertension Past Surgical History: Other Additional Past Surgical Histo: L KNEE Smoking Status: Current Every Day Smoker Additional Information: 0.5 PPD Alcohol Use: Occasionally Drug Use: Cocaine, Marijuana Adult General Chief Complaint Chief Complaint: LOWER EXT PAIN HPI HPI Patient is a 54 year old AA female who presents to the emergency department with complaints of continued right foot pain and development of right foot redness, warmth, and increased swelling. Patient states she was seen here a week ago and was prescribed some hydrocodone and naproxen for foot pain. Cassidy ent states that that time she did not have any redness or warmth. She denies any injury, or drainage from the affected area. Patient states it is is strong burning sensation that she is feeling in her foot. She denies any itching. She currently rates her discomfort a 10 out of 10 on the pain scale. Patient states she has been taking naproxen twice a day and taking the hydrocodone with no reli ef of her symptoms. Patient denies any fever, cough, shortness of breath, nausea, vomiting, diarrhea, or weakness of the affected extremity. She denies any known injury. Review of Systems Review of Systems Complete ROS is negative unless otherwise noted in HPI. Current Medications Current Medications Current Medications Medications (Trade) Dose Ordered Sig/Brooks Start Time Stop Time Status Last Admin Dose Admin Dexamethasone Sodium Phosphate (Decadron) 10 mg 1X ONCE 04/25/19 16:45 04/25/19 16:46 DC 04/25/19 16:57 10 MG Allergies Allergies Allergies Coded Allergies Type Severity Reaction Last Updated Verified No Known Drug Allergies 08/12/13 No Physical Exam Physical Exam See Above Constitutional: Well developed, well nourished, no acute distress, non-toxic ana earance. [] HENT: Normocephalic, atraumatic, bilateral external ears normal, nose normal. [] Eyes: PERRLA, EOMI, conjunctiva normal, no discharge. [] Neck: Normal range of motion, no stridor. [] Cardiovascular:Heart rate regular rhythm, no murmur [] Lungs & Thorax: Bilateral breath sounds clear to auscultation, Respirations even and unlabored, no retractions, no respiratory distress Skin: Warm, dry; redness, warmth, and 1+ swelling noted to the right foot, concerning for cellulitis, no weeping or drainage noted. Extremities: RLE; Diffuse right foot tenderness to palpation, no ankle tenderness, tenderness, no cyanosis, no clubbing, PMS intact Neurologic: Alert and oriented X 3, no focal deficits noted. [] Psychologic: Affect normal, judgement normal, mood normal. [] Current Patient Data Vital Signs Vital Signs Date Time Temp Pulse Resp B/P (MAP) Pulse Ox O2 Delivery O2 Flow Rate FiO2 04/25/19 14:50 98.0 96 20 193/76 (115) 99 Room Air 98.0 Lab Values Laboratory Tests Test 04/25/19 15:30 White Blood Count 15.7 x10^3/uL (4.0-11.0) H Red Blood Count 3.79 x10^6/uL (3.50-5.40) Hemoglobin 11.5 g/dL (12.0-15.5) L Hematocrit 35.0 % (36.0-47.0) L Mean Corpuscular Volume 92 fL (79-100) Mean Corpuscular Hemoglobin 30 pg (25-35) Mean Corpuscular Hemoglobin Concent 33 g/dL (31-37) Red Cell Distribution Width 15.4 % (11.5-14.5) H Platelet Count 396 x10^3/uL (140-400) Neutrophils (%) (Auto) 74 % (31-73) H Lymphocytes (%) (Auto) 19 % (24-48) L Monocytes (%) (Auto) 5 % (0-9) Eosinophils (%) (Auto) 1 % (0-3) Basophils (%) (Auto) 1 % (0-3) Neutrophils # (Auto) 11.6 x10^3/uL (1.8-7.7) H Lymphocytes # (Auto) 3.0 x10^3/uL (1.0-4.8) Monocytes # (Auto) 0.8 x10^3/uL (0.0-1.1) Eosinophils # (Auto) 0.2 x10^3/uL (0.0-0.7) Basophils # (Auto) 0.1 x10^3/uL (0.0-0.2) Sodium Level 138 mmol/L (136-145) Potassium Level 3.4 mmol/L (3.5-5.1) L Chloride Level 103 mmol/L (98-107) Carbon Dioxide Level 26 mmol/L (21-32) Anion Gap 9 (6-14) Blood Urea Nitrogen 12 mg/dL (7-20) Creatinine 1.1 mg/dL (0.6-1.0) H Estimated GFR (Cockcroft-Gault) 62.9 Glucose Level 325 mg/dL (70-99) H Uric Acid 3.4 mg/dL (2.6-6.0) Calcium Level 8.4 mg/dL (8.5-10.1) L C-Reactive Protein, Quantitative 30.5 mg/L (0-3.3) H Laboratory Tests 04/25/19 15:30 Laboratory Tests 04/25/19 15:30 EKG EKG [] Radiology/Procedures Radiology/Procedures [] Course & Med Decision Making Course & Med Decision Making Pertinent Labs and Imaging studies reviewed. (See chart for details) Patient is a 54-year-old -[place] female who presented to the emergency room with complaints of right foot pain that began a week ago. Patient states she was given naproxen and hydrocodone at a previous ER visit and that the m edications have not helped to reduce her pain at all. Physical exam is concerning for gout versus cellulitis. Will draw CBC, uric acid, BMP, ESR and CRP. Patient CBC showed elevated WBC of 15.7, no bandemia; Patient was hypertensive on arrival, she reports that she did take her lisinopril as prescribed earlier today. Blood pressure was 183/83 at discharge, pt instructed to take her home blood pressure medication as prescribed. CMP revealed potassium of 3.4, creatinine of 1.1, glucose of 325, calcium of 8.4; C-reactive protein was 30.5. Patient was also evaluated by Dr. Lainez, prescriptions written for Bactrim, Keflex, naproxen, hydrocodone, and a Medrol Dosepak. Patient was given 10 mg of IM Decadron in the emergency department. Dr. Lainez in agreement with POC. Joseph Disclaimer Joseph Disclaimer This electronic medical record was generated, in whole or in part, using a voice recognition dictation system. Departure Departure Impression: Primary Impression: Cellulitis of right foot Additional Impression: Gout attack Disposition: HOME, SELF-CARE Condition: STABLE Referrals: NO PCP (PCP) Patient Instructions: Cellulitis, [id number] Additional Instructions: Fill the prescriptions and take them as directed. Follow-up with your primary care doctor next week for reevaluation. Return to the ER if your symptoms worsen. Scripts Methylprednisolone (MEDROL) 4 Mg Tab.ds.pk 1 PKG PO UD for 6 Days, #1 PKG 0 Refills begin taking on 04/26/19 Prov: ALICE SANDRA [facility] 04/25/19 Hydrocodone Bit/Acetaminophen (HYDROCODONE-APAP 5-325 ) 1 Tab Tablet 1 TAB PO PRN Q6HRS PRN for PAIN for 3 Days, #10 TAB 0 Refills Prov: ALICE SANDRA [employer] 04/25/19 Naproxen (NAPROXEN) 500 Mg Tablet 1 TAB PO BID PRN for PAIN for 10 Days, #20 TAB 0 Refills Prov: ALICE SANDRA APRN 04/25/19 Sulfamethoxazole/Trimethoprim (BACTRIM DS TABLET) 1 Each Tablet 1 TAB PO BID for 7 Days, #14 TAB 0 Refills Prov: ALICE SANDRA APRN 04/25/19 Cephalexin (KEFLEX) 500 Mg Capsule 500 MG PO QID for 7 Days, #28 CAP 0 Refills Prov: ALICE SANDRA APRN 04/25/19 Problem Qualifiers Additional Impression: Gout attack Gout site: foot Gout etiology: unspecified cause Laterality: right Qualified Codes: M10.9 - Gout, unspecified AL[facility] Apr 25, 2019 16:40
[2019-04-25] MEDS ORDERED: DEXAMETHASONE SOD PHOS 20 MG/5 ML VIAL. IM ONE (16:45)
[2019-04-25] MEDS ORDERED: METH4TAB2 PO (16:46)
[2019-04-25 17:04] VITALS: BP 183/83
== END 2019-04-25 17:05 | disposition home or self-care (01) ==
LOC: ER 14:45
DX: L03.115 Cellulitis of right lower limb (principal); M10.9 Gout, unspecified; R60.0 Localized edema; E11.9 Type 2 diabetes mellitus without complications; K21.9 Gastro-esophageal reflux disease without esophagitis; I10 Essential (primary) hypertension; F17.200 Nicotine dependence, unspecified, uncomplicated; F12.90 Cannabis use, unspecified, uncomplicated; F14.90 Cocaine use, unspecified, uncomplicated; Z98.890 Other specified postprocedural states
CPT/HCPCS: 36415; 80048; 84550; 85025; 85651; 86140; 96372; 99283; J1100